=== PATIENT | female | born 1955 | race Caucasian/White ===

== ENCOUNTER 2020-06-27 11:53 | Outpatient (REF) | payer MEDICARE, SELFPAY ==
--- NOTE | 2020-06-27 11:59 | MM_ITS ---
EXAMINATION: BONE DENSITOMETRY CLINICAL INDICATION: Osteopenia. COMPARISON: Baseline BD dated 10/10/2010. TECHNIQUE: Using a [employer] DXA System (software version: 13.1) manufactured by [employer], dual-energy x-ray absorptiometry was performed of the lumbar spine and left hip. The images are of good technical quality. Summary results are attached. FINDINGS: AP SPINE L1-L4: Current: BMD 1.175 g/cm2, Z-score 1.0, T-score 0.0, normal, 1.8% increase from baseline (<5% change is not significant). Baseline: BMD 1.154 g/cm2. LEFT FEMUR, NECK: Current: BMD 0.813 g/cm2, Z-score -0.5, T-score -1.6, osteopenia. Baseline: BMD 0.923 g/cm2. LEFT FEMUR, TOTAL: Current: BMD 0.876 g/cm2, Z-score -0.2, T-score -1.0, normal, 9.9% decrease from baseline (<5% change is not significant). Baseline: BMD 0.972 g/cm2. IDENTIFIED RISK FACTORS: Menopause, right oophorectomy. HISTORY OF FRACTURE: None listed. MEDICATIONS: Calcium supplements or multivitamin, vitamin D. MM/XR DEXA axial skeleton IMPRESSION: 1. DIAGNOSIS: Osteopenia based on the lowest T-score value of -1.6 in the femoral neck applying World Health Organization criteria. 2. 10-YEAR FRACTURE RISK PREDICTION, FRAX: Major osteoporotic fracture (clinical spine, forearm, hip or shoulder) 9.5%. Hip fracture 1.2%. 3. Treatment Recommendations: NOF guidelines recommend consideration for treatment in postmenopausal women and men age 50 and older presenting with the following: -A hip or vertebral (clinical or morphometric) fracture. -T-score less than or equal to -2.5 at the femoral neck or spine after appropriate evaluation to exclude secondary causes. -Low bone mass at the hip or spine and a 10-year fracture probability by FRAX of greater than or equal to 3% for hip fracture or greater than or equal to 20% for major osteoporotic fracture based on the [place] adapted WHO algorithm. 4. Other Recommendations: All treatment decisions require clinical judgment and consideration of individual patient factors, including patient preferences, comorbidities, previous drug use, risk factors not captured in the FRAX model (e.g. frailty, falls, vitamin D deficiency, increased bone turnover, interval significant decline in bone density) and possible under or overestimation of fracture risk by FRAX. Additional medical evaluation for secondary cause of low bone mineral density may be appropriate. FUTURE SCAN RECOMMENDATION: People with diagnosed cases of osteoporosis or at high risk for fracture should have regular bone mineral density tests. For patients eligible for Medicare, routine testing is allowed once every 2 years. The testing frequency can be increased to one year for patients who have rapidly progressing disease, those who are receiving or discontinuing medical therapy to restore bone mass, or have additional risk factors.
--- NOTE | 2020-06-27 11:59 | MM_ITS ---
EXAMINATION: MM SCREENING DIGITAL BREAST TOMOSYNTHESIS, BILATERAL CLINICAL INFORMATION: Screening. Asymptomatic. Family history postmenopausal breast cancer, aunt. The lifetime risk of breast cancer based on the Tyrer-Cuzick Model is 12%. COMPARISON: Outside synthesized 2-D images 09/03/2017, 08/29/2016, 06/14/2015 ([facility], [facility]). Digital mammography 05/13/2010. TECHNIQUE: Digital breast tomosynthesis is performed in both the craniocaudal and mediolateral oblique views along with computer-aided detection (CAD). Synthesized 2D images are generated from the tomosynthesis. FINDINGS: There are scattered areas of fibroglandular density (ACR BI-RADS breast composition Category b). There are no significant masses, abnormal calcifications, or other abnormalities. Parenchymal pattern is similar to prior studies. No significant changes. MM/MM tomosynthesis screening BI IMPRESSION: No mammographic evidence of malignancy. ASSESSMENT: BI-RADS 1: Negative RECOMMENDATION: Routine annual mammography screening. This patient's information was entered into a reminder system with a target due date for their next mammogram.
== END 2020-06-27 11:54 | disposition home or self-care (01) ==
LOC: HO.MAMMO 11:53
PROVIDERS: PCP Internal Medicine; Visit Provider Internal Medicine
DX: M85.89 Other specified disorders of bone density and structure, multiple sites (principal); Z12.31 Encounter for screening mammogram for malignant neoplasm of breast
CPT/HCPCS: 77063; 77067; 77080

== ENCOUNTER 2021-01-17 10:36 | Outpatient (REF) | payer MEDICARE, SELFPAY ==
[2021-01-17 10:39] LABS: MANUAL DIFF FLAG NO
[2021-01-17 10:46] LABS: Basophils Percent Auto 0.6 % (0-2); Eosinophils Absolute Auto 0.1 X10*3/uL (0.0-0.4); Eosinophils Percent Auto 1.8 % (0-4); Hematocrit 42.3 % (37-47); Hemoglobin 13.8 g/dl (12.0-16.0); Imm Gran Abs Auto 0.02 X10*3/uL (0.00-0.03); Imm Gran Pct Auto 0.4 % (0.0-0.4); Lymphocytes Absolute Auto 2.2 X10*3/uL (1.2-4.9); Lymphocytes Percent Auto 42.7 % (20-40); Mean Corpuscular HGB Conc 32.6 g/dl (31.0-35.0); Mean Corpuscular Hemoglobin 28.7 pg (27.0-33.0); Mean Corpuscular Volume 87.9 fL (80-98); Monocytes Absolute Auto 0.6 X10*3/uL (0.1-1.2); Monocytes Percent Auto 12.1 % (2-11); Neutrophils Absolute Auto 2.2 X10*3/uL (2.0-8.3); Neutrophils Percent Auto 42.4 % (45-73); Platelet Count 225 X10*3/uL (160-400); Red Blood Count 4.81 X10*6/uL (4.20-5.50); Red Cell Distribution Width 12.9 % (11.0-16.0); White Blood Count 5.1 X10*3/uL (4.8-10.8)
[2021-01-17 11:10] LABS: Glucose Urine UA NEG (NEG); Leukocyte Esterase Urine TRACE (NEG); Nitrite Urine NEG (NEG); Specific Gravity - Urine 1.025 (1.005-1.025); Urine Blood NEG (NEG); Urine Ketones NEG (NEG); Urine Protein NEG (NEG-TRACE)
[2021-01-17 11:11] LABS: Appearance Urine CLEAR; Color Urine YELLOW
[2021-01-17 11:30] LABS: Alanine Aminotransferase 18 U/L (0-31); Albumin Level 3.9 g/dL (3.5-5.0); Alkaline Phosphatase 72 U/L (39-117); Anion Gap 13 (12-20); Aspartate Amino Transferase 19 U/L (5-31); Bilirubin Total 0.6 mg/dL (0.0-1.0); Blood Urea Nitrogen 15 mg/dL (9-16); Calcium 9.4 mg/dL (8.4-10.2); Carbon Dioxide 25 mmol/L (22-29); Chloride 108 mmol/L (96-108); Cholesterol 209 mg/dL; Estimated Glomerular Filt Rate > 60; Glucose Fasting 101 mg/dL (60-99); HDL Cholesterol 48 mg/dL; LDL Cholesterol Calculated 140 mg/dl; Potassium 4.4 mmol/L (3.3-5.1); Sodium 142 mmol/L (135-145); Total Protein 6.7 g/dL (6.5-8.0); Triglycerides 107 mg/dL
[2021-01-17 11:31] LABS: Vitamin D 25-OH Total 36.2 ng/mL (>30)
[2021-01-17 11:43] LABS: Bacteria Urine 1+ /LPF; Mucus Urine TRACE /LPF; Squamous Epithelial Cell Urine 2+ /LPF
== END 2021-01-17 10:37 | disposition home or self-care (01) ==
LOC: HO.LNP 10:36
PROVIDERS: Visit Provider Internal Medicine
DX: I10 Essential (primary) hypertension (principal); E78.00 Pure hypercholesterolemia, unspecified; D72.820 Lymphocytosis (symptomatic); M85.80 Other specified disorders of bone density and structure, unspecified site
CPT/HCPCS: 80053; 80061; 81001; 81003; 82306; 85025

== ENCOUNTER 2021-10-05 08:32 | Outpatient (REF) | payer MEDICARE, SELFPAY ==
--- NOTE | ~2021-10-05 | MM_ITS ---
EXAMINATION: MM SCREENING DIGITAL BREAST TOMOSYNTHESIS, BILATERAL CLINICAL INFORMATION: Screening. Asymptomatic. The lifetime risk of breast cancer based on the Tyrer-Cuzick Model is 8%. COMPARISON: Mammography: June 27, 2020 and studies dating back to June 14, 2015 TECHNIQUE: Digital breast tomosynthesis is performed in both the craniocaudal and mediolateral oblique views along with computer-aided detection (CAD). Synthesized 2D images are generated from the tomosynthesis. FINDINGS: There are scattered areas of fibroglandular density (ACR BI-RADS breast composition Category b). There are no significant masses, abnormal calcifications, or other abnormalities. MM/MM tomosynthesis screening BI IMPRESSION: There are no significant changes from prior study. ASSESSMENT: BI-RADS 1: Negative RECOMMENDATION: Routine annual mammography screening. This patient's information was entered into a reminder system with a target due date for their next mammogram.
== END 2021-10-05 08:33 | disposition home or self-care (01) ==
LOC: HO.MAMMO 08:32
PROVIDERS: PCP Internal Medicine; Visit Provider Internal Medicine
DX: Z12.31 Encounter for screening mammogram for malignant neoplasm of breast (principal)
CPT/HCPCS: 77063; 77067

== ENCOUNTER 2022-01-16 10:26 | Outpatient (REF) | payer MEDICARE, SELFPAY ==
[2022-01-16 10:30] LABS: MANUAL DIFF FLAG NO
[2022-01-16 11:31] LABS: Appearance Urine CLEAR; Color Urine YELLOW; Glucose Urine UA NEG (NEG); Leukocyte Esterase Urine NEG (NEG); Nitrite Urine NEG (NEG); PH 5.5 (5.0-8.0); Specific Gravity - Urine >= 1.030 (1.005-1.025); Urine Blood NEG (NEG); Urine Ketones NEG (NEG); Urine Protein TRACE MG/DL (NEG-TRACE)
[2022-01-16 11:51] LABS: Basophils Percent Auto 0.4 % (0-2); Eosinophils Absolute Auto 0.1 X10*3/uL (0.0-0.4); Hematocrit 43.4 % (37.0-47.0); Hemoglobin 13.9 g/dl (12.0-16.0); Imm Gran Abs Auto 0.02 X10*3/uL (0.00-0.03); Imm Gran Pct Auto 0.3 % (0.0-0.4); Lymphocytes Absolute Auto 2.7 X10*3/uL (1.2-4.9); Lymphocytes Percent Auto 38.2 % (20-40); Mean Corpuscular Hemoglobin 28.3 pg (27.0-33.0); Mean Corpuscular Volume 88.2 fL (80.0-98.0); Mean Platelet Volume 11.4 fL (9.4-12.3); Monocytes Absolute Auto 0.9 X10*3/uL (0.1-1.2); Monocytes Percent Auto 12.2 % (2-11); Neutrophils Absolute Auto 3.4 x10*3/uL (2.0-8.3); Neutrophils Percent Auto 46.9 % (45-73); Platelet Count 247 X10*3/uL (160-400); Red Blood Count 4.92 X10*6/uL (4.20-5.50); Red Cell Distribution Width 13.4 % (11.0-16.0); White Blood Count 7.1 X10*3/uL (4.8-10.8)
[2022-01-16 12:34] LABS: Alanine Aminotransferase 18 U/L (0-31); Albumin Level 3.9 g/dL (3.5-5.0); Alkaline Phosphatase 73 U/L (39-117); Anion Gap 12 (12-20); Aspartate Amino Transferase 17 U/L (5-31); Bilirubin Total 0.5 mg/dL (0.0-1.0); Blood Urea Nitrogen 21 mg/dL (9-16); Carbon Dioxide 27 mmol/L (22-29); Chloride 105 mmol/L (96-108); Cholesterol 218 mg/dL; Estimated Glomerular Filt Rate > 60; Glucose Fasting 102 mg/dL (60-99); HDL Cholesterol 49 mg/dL; LDL Cholesterol Calculated 145 mg/dl; Potassium 4.1 mmol/L (3.3-5.1); Sodium 140 mmol/L (135-145); Total Protein 6.7 g/dL (6.5-8.0); Triglycerides 121 mg/dL
[2022-01-16 12:35] LABS: RBC Urine 0 /HPF (0); WBC Urine 0-2 /HPF (0-4)
[2022-01-16 12:36] LABS: Calcium Oxalate Crystals Urine TRACE /LPF; Squamous Epithelial Cell Urine 2+ /LPF
== END 2022-01-16 10:27 | disposition home or self-care (01) ==
LOC: HO.LNP 10:26
PROVIDERS: PCP Internal Medicine; Visit Provider Internal Medicine
DX: I10 Essential (primary) hypertension (principal); D72.820 Lymphocytosis (symptomatic); E78.00 Pure hypercholesterolemia, unspecified
CPT/HCPCS: 80053; 80061; 81001; 85025

== ENCOUNTER 2022-01-24 11:59 | Outpatient (REF) | payer MEDICARE, BC, SELFPAY ==
--- NOTE | ~2022-01-24 | XR_ITS ---
EXAMINATION: CHEST WITH RIBS BILATERAL. BILATERAL KNEE, LEFT ANKLE AND LEFT HAND AND WRIST. CLINICAL INFORMATION: Fall. Pain. COMPARISON: None TECHNIQUE: Chest and bilateral RIBS 3 views. Bilateral knee 3 views each. Left ankle 3 views. Left hand 4 views. FINDINGS: Chest: Both lungs are fairly well-expanded and clear of acute process. Heart size and pulmonary vascularity is normal. There is mild spondylosis dorsal spine. Bilateral RIBS: One view at each of bilateral ribs reveals no visible fracture or bony abnormality. No soft tissue abnormality. Right knee: There is mild loss of patellofemoral compartment joint space is anterior superior patellar enthesophyte. There is minimal suprapatellar joint effusion. The medial and lateral compartment is maintained normal. There is a small loose body seen anterior to the intercondylar eminence. Left knee: There is mild reduction in patellofemoral compartment joint space. The lateral and the medial matter compartment joint space is maintained normal. There is mild spurring in the lateral compartment and periarticular joint effusion. There is a small loose body in the suprapatellar compartment. . Left ankle: There is a small calcaneal heel enthesophyte. No visible acute fracture or dislocation seen. The soft tissues Left hand: There is no visible acute fracture, dislocation or subluxation seen. There is no joint effusion. The soft tissues are normal. XR/XR hand wrist LT IMPRESSION: No acute fracture or dislocation involving the left hand/wrist, left ankle or the left knee. There is calcaneal heel enthesophyte. Mild degenerative changes involving the knee joints are noted without any joint effusion. There is likely a small loose body in the suprapatellar compartment. Mild DJD right knee. Unremarkable chest and bilateral rib exam.
--- NOTE | ~2022-01-24 | XR_ITS ---
EXAMINATION: CHEST WITH RIBS BILATERAL. BILATERAL KNEE, LEFT ANKLE AND LEFT HAND AND WRIST. CLINICAL INFORMATION: Fall. Pain. COMPARISON: None TECHNIQUE: Chest and bilateral RIBS 3 views. Bilateral knee 3 views each. Left ankle 3 views. Left hand 4 views. FINDINGS: Chest: Both lungs are fairly well-expanded and clear of acute process. Heart size and pulmonary vascularity is normal. There is mild spondylosis dorsal spine. Bilateral RIBS: One view at each of bilateral ribs reveals no visible fracture or bony abnormality. No soft tissue abnormality. Right knee: There is mild loss of patellofemoral compartment joint space is anterior superior patellar enthesophyte. There is minimal suprapatellar joint effusion. The medial and lateral compartment is maintained normal. There is a small loose body seen anterior to the intercondylar eminence. Left knee: There is mild reduction in patellofemoral compartment joint space. The lateral and the medial matter compartment joint space is maintained normal. There is mild spurring in the lateral compartment and periarticular joint effusion. There is a small loose body in the suprapatellar compartment. . Left ankle: There is a small calcaneal heel enthesophyte. No visible acute fracture or dislocation seen. The soft tissues Left hand: There is no visible acute fracture, dislocation or subluxation seen. There is no joint effusion. The soft tissues are normal. XR/XR ribs BI 3V IMPRESSION: No acute fracture or dislocation involving the left hand/wrist, left ankle or the left knee. There is calcaneal heel enthesophyte. Mild degenerative changes involving the knee joints are noted without any joint effusion. There is likely a small loose body in the suprapatellar compartment. Mild DJD right knee. Unremarkable chest and bilateral rib exam.
--- NOTE | ~2022-01-24 | XR_ITS ---
EXAMINATION: CHEST WITH RIBS BILATERAL. BILATERAL KNEE, LEFT ANKLE AND LEFT HAND AND WRIST. CLINICAL INFORMATION: Fall. Pain. COMPARISON: None TECHNIQUE: Chest and bilateral RIBS 3 views. Bilateral knee 3 views each. Left ankle 3 views. Left hand 4 views. FINDINGS: Chest: Both lungs are fairly well-expanded and clear of acute process. Heart size and pulmonary vascularity is normal. There is mild spondylosis dorsal spine. Bilateral RIBS: One view at each of bilateral ribs reveals no visible fracture or bony abnormality. No soft tissue abnormality. Right knee: There is mild loss of patellofemoral compartment joint space is anterior superior patellar enthesophyte. There is minimal suprapatellar joint effusion. The medial and lateral compartment is maintained normal. There is a small loose body seen anterior to the intercondylar eminence. Left knee: There is mild reduction in patellofemoral compartment joint space. The lateral and the medial matter compartment joint space is maintained normal. There is mild spurring in the lateral compartment and periarticular joint effusion. There is a small loose body in the suprapatellar compartment. . Left ankle: There is a small calcaneal heel enthesophyte. No visible acute fracture or dislocation seen. The soft tissues Left hand: There is no visible acute fracture, dislocation or subluxation seen. There is no joint effusion. The soft tissues are normal. XR/XR ankle LT 2V IMPRESSION: No acute fracture or dislocation involving the left hand/wrist, left ankle or the left knee. There is calcaneal heel enthesophyte. Mild degenerative changes involving the knee joints are noted without any joint effusion. There is likely a small loose body in the suprapatellar compartment. Mild DJD right knee. Unremarkable chest and bilateral rib exam.
== END 2022-01-24 12:00 | disposition home or self-care (01) ==
LOC: HO.HMGCX 11:59
PROVIDERS: PCP Internal Medicine; Visit Provider Physician Assistant
DX: M25.561 Pain in right knee (principal); M25.562 Pain in left knee; M25.572 Pain in left ankle and joints of left foot; M25.532 Pain in left wrist; M79.642 Pain in left hand; R07.81 Pleurodynia; Z91.81 History of falling
CPT/HCPCS: 71110; 73110; 73130; 73562; 73600

== ENCOUNTER 2022-06-29 14:52 | Outpatient (REF) | payer MEDICARE, BC, SELFPAY ==
--- NOTE | ~2022-06-29 | MM_ITS ---
EXAMINATION: BONE DENSITOMETRY CLINICAL INDICATION: Osteopenia. COMPARISON: Previous BD dated 06/27/2012 and baseline BD dated 10/10/2010. TECHNIQUE: Using a [employer] DXA System (software version: 13.1) manufactured by [employer], dual-energy x-ray absorptiometry was performed of the lumbar spine and left hip. The images are of good technical quality. Summary results are attached. FINDINGS: AP SPINE L1-L2 (excluding L3 and L4): The data of L1-L4 has been changed to exclude the L3 and L4 vertebral bodies, because degenerative changes at these levels may cause overestimation of lumbar spine density. Current: BMD 0.988 g/cm2, Z-score -0.3, T-score -1.5, osteopenia, 6.2% decrease from previous, 8.9% decrease from baseline (<5% change is not significant). Prior: BMD 1.053 g/cm2. Baseline: BMD 1.084 g/cm2. LEFT FEMUR, NECK: Current: BMD 0.659 g/cm2, Z-score -1.4, T-score -2.7, osteoporosis. Prior: BMD 0.813 g/cm2. Baseline: BMD 0.923 g/cm2. LEFT FEMUR, TOTAL: Current: BMD 0.727 g/cm2, Z-score -1.2, T-score -2.2, osteopenia, 17.0% decrease from previous, 25.2% decrease from baseline (<5% change is not significant). Prior: BMD 0.876 g/cm2. Baseline: BMD 0.972 g/cm2. IDENTIFIED RISK FACTORS: Menopause, left oophorectomy, recurrent falls. HISTORY OF FRACTURE: None listed. MEDICATIONS: Vitamin D. MM/XR DEXA axial skeleton IMPRESSION: 1. DIAGNOSIS: Osteoporosis based on the lowest T-score value of -2.7 in the femoral neck applying World Health Organization criteria. 2. 10-YEAR FRACTURE RISK PREDICTION, FRAX: According to the guidelines, FRAX calculation should only be performed on patients in the osteopenia bone density category. Therefore, FRAX was not performed on this patient. 3. Treatment Recommendations: NOF guidelines recommend consideration for treatment in postmenopausal women and men age 50 and older presenting with the following: -A hip or vertebral (clinical or morphometric) fracture. -T-score less than or equal to -2.5 at the femoral neck or spine after appropriate evaluation to exclude secondary causes. -Low bone mass at the hip or spine and a 10-year fracture probability by FRAX of greater than or equal to 3% for hip fracture or greater than or equal to 20% for major osteoporotic fracture based on the [place] adapted WHO algorithm. 4. Other Recommendations: All treatment decisions require clinical judgment and consideration of individual patient factors, including patient preferences, comorbidities, previous drug use, risk factors not captured in the FRAX model (e.g. frailty, falls, vitamin D deficiency, increased bone turnover, interval significant decline in bone density) and possible under or overestimation of fracture risk by FRAX. Additional medical evaluation for secondary cause of low bone mineral density may be appropriate. FUTURE SCAN RECOMMENDATION: People with diagnosed cases of osteoporosis or at high risk for fracture should have regular bone mineral density tests. For patients eligible for Medicare, routine testing is allowed once every 2 years. The testing frequency can be increased to one year for patients who have rapidly progressing disease, those who are receiving or discontinuing medical therapy to restore bone mass, or have additional risk factors.
== END 2022-06-29 14:53 | disposition home or self-care (01) ==
LOC: HO.MAMMO 14:52
PROVIDERS: PCP Internal Medicine; Visit Provider Internal Medicine
DX: Z13.820 Encounter for screening for osteoporosis (principal); Z78.0 Asymptomatic menopausal state; M85.88 Other specified disorders of bone density and structure, other site
CPT/HCPCS: 77080

== ENCOUNTER 2022-08-10 13:28 | Outpatient (REF) | payer MEDICARE, BC, SELFPAY ==
[2022-08-10 15:58] LABS: Phosphorus 3.4 mg/dL (2.7-4.5)
[2022-08-10 16:16] LABS: Free T4 (Free Thyroxine) 1.13 ng/dL (0.71-1.85); Thyroid Stimulating Hormone 1.38 uIU/mL (0.32-4.0)
[2022-08-13 14:48] LABS: Prot Elec - Albumin 3.9 g/dL (3.8-4.8); Prot Elec - Alpha1 0.3 g/dL (0.2-0.3); Prot Elec - Alpha2 0.7 g/dL (0.5-0.9); Prot Elec - Beta 1 0.4 g/dL (0.4-0.6); Prot Elec - Beta 2 0.3 g/dL (0.2-0.5); Prot Elec - Gamma 1.1 g/dL (0.8-1.7); Prot Elec - Total Protein 6.7 g/dL (6.1-8.1)
== END 2022-08-10 13:29 | disposition home or self-care (01) ==
LOC: HO.LAB 13:28
PROVIDERS: PCP Internal Medicine; Referring Provider Internal Medicine; Visit Provider Internal Medicine Endocrinology, Diabetes & Metabolism
DX: M81.0 Age-related osteoporosis without current pathological fracture (principal); Z78.0 Asymptomatic menopausal state; Z79.899 Other long term (current) drug therapy
CPT/HCPCS: 84100; 84165; 84439; 84443; 86335; 99202

== ENCOUNTER 2022-11-16 10:49 | Outpatient (REF) | payer MEDICARE, BC, SELFPAY ==
--- NOTE | ~2022-11-16 | MM_ITS ---
EXAMINATION: MM SCREENING DIGITAL BREAST TOMOSYNTHESIS, BILATERAL CLINICAL INFORMATION: Screening. Asymptomatic. The lifetime risk of breast cancer based on the Tyrer-Cuzick Model is 9%. COMPARISON: Mammography: 12/05/2021, 06/27/2020; outside mammography 09/03/2017, 08/29/2016 ([facility], [place]). TECHNIQUE: Digital breast tomosynthesis is performed in both the craniocaudal and mediolateral oblique views along with computer-aided detection (CAD). Synthesized 2D images are generated from the tomosynthesis. FINDINGS: There are scattered areas of fibroglandular density (ACR BI-RADS breast composition Category b). There are no significant masses, abnormal calcifications, or other abnormalities. Parenchymal pattern is similar to prior studies. There is no developing density or architectural abnormality. The axilla and skin contours are unremarkable. No significant changes. MM/MM tomosynthesis screening BI IMPRESSION: No mammographic evidence of malignancy. ASSESSMENT: BI-RADS 1: Negative RECOMMENDATION: Routine annual mammography screening. This patient's information was entered into a reminder system with a target due date for their next mammogram.
== END 2022-11-16 10:50 | disposition home or self-care (01) ==
LOC: HO.MAMMO 10:49
PROVIDERS: PCP Internal Medicine; Visit Provider Internal Medicine
DX: Z12.31 Encounter for screening mammogram for malignant neoplasm of breast (principal)
CPT/HCPCS: 77063; 77067

== ENCOUNTER 2023-01-24 09:31 | Outpatient (REF) | payer MEDICARE, BC, SELFPAY ==
[2023-01-24 10:43] LABS: Creatinine, mg/dL 85.01
[2023-01-24 12:58] LABS: Creatinine, 24Hr Urine 0.9 G/Day (1.0-2.0); Total Volume 24 Hour Urine 1050 mL
[2023-01-26 21:24] LABS: Calcium, 24 Hr Urine 319 mg/24 h; Calcium/Creatinine Ratio 345 mg/g creat (30-275); Creatinine 24Hr Urine 0.92 g/24 h (0.50-2.15)
== END 2023-01-24 09:32 | disposition home or self-care (01) ==
LOC: HO.LNP 09:31
PROVIDERS: Visit Provider Internal Medicine Endocrinology, Diabetes & Metabolism
DX: M81.0 Age-related osteoporosis without current pathological fracture (principal)
CPT/HCPCS: 82340; 82570

== ENCOUNTER 2023-01-28 10:55 | Outpatient (AMB) | payer MEDICARE, BC, SELFPAY ==
--- NOTE | 2023-01-28 10:56 | A.OFFVIS_ITS ---
Intake Vital Signs 01/28/23 10:57 Height 5 ft 8 in Weight 185 lb 3.013 oz BMI 28.2 BP 118/70 Blood Pressure Location Lt brachial Position Sitting Pulse 66 Pulse Source Pulse Oximeter Pulse Oximetry (%) 97 Oxygen Delivery Method Room Air Intake Visit Reasons: f/u osteoporosis Intake Note: Patient present today for Osteoporosis follow up visit. Allergies aspirin [ASA] Allergy (Unknown, Unverified 01/28/23 10:59) HIVES codeine [CODEINE] Allergy (Unknown, Unverified 01/28/23 10:59) AGITATION Iodinated Contrast Media [IV CONTRAST] Allergy (Unknown, Unverified 01/28/23 10:59) ANAPHYLAXIS Medication List - Last Reconciled 01/28/23 by Jordy Hyatt MD cyclobenzaprine 5 mg PO BEDTIME PRN lisinopril-hydrochlorothiazide 10-12.5 mg 1 tab PO DAILY paroxetine HCl 20 mg PO DAILY propranolol ER 60 mg PO DAILY HPI HPI Comments History of Present Illness Details 67 YO F with PMHx [] is seen in consultation at the request of PCP for Osteoporosis. First diagnosed in just dx . Not Received treatment in the past . No history of pathologic fracture or ONJ. Has severla servings of dietary calcium per day in the form of broccoli, cheese, . Not Takes Calcium supplement divided doses. Takes ? IU of Vitamin D daily. Denies ever using PPI, anticoagulant, antiepileptic or glucocorticoid medication. Does not weight bearing exercise Fracture history: N Height loss: N [employer] history: menopause age 52 . Had endometrosis Denies history of Kidney stones: Denies family history of Osteoporosis or hip fracture. UTD on dental cleanings and sees dentist every 6 months. No planned upcoming dental work or extractions. DXA dated 06/29/22:FINDINGS: AP SPINE L1-L2 (excluding L3 and L4): The data of L1-L4 has been changed to exclude the L3 and L4 vertebral bodies, because degenerative changes at these levels may cause overestimation of lumbar spine density. Current: BMD 0.988 g/cm2, Z-score -0.3, T-score -1.5, osteopenia, 6.2% decrease from previous, 8.9% decrease from baseline (<5% change is not significant). Prior: BMD 1.053 g/cm2. Baseline: BMD 1.084 g/cm2. LEFT FEMUR, NECK: Current: BMD 0.659 g/cm2, Z-score -1.4, T-score -2.7, osteoporosis. Prior: BMD 0.813 g/cm2. Baseline: BMD 0.923 g/cm2. LEFT FEMUR, TOTAL: Current: BMD 0.727 g/cm2, Z-score -1.2, T-score -2.2, osteopenia, 17.0% decrease from previous, 25.2% decrease from baseline (<5% change is not significant). Prior: BMD 0.876 g/cm2. Baseline: BMD 0.972 g/cm2. IDENTIFIED RISK FACTORS: Menopause, left oophorectomy, recurrent falls. HISTORY OF FRACTURE: None listed. MEDICATIONS: Vitamin D. MM/XR DEXA axial skeleton IMPRESSION: 1. DIAGNOSIS: Osteoporosis based on the lowest T-score value of -2.7 in the femoral neck applying World Health Organization criteria.? Labs: Secondary workup was negative except for mild hypercalcuria [facility] Medical History (Updated 08/10/22 @ 13:50 by Jordy Hyatt MD) Osteoporosis Surgical History (Updated 08/10/22 @ 13:32 by ELIZABETH Melton) Hx of colonoscopy Family History (Updated 08/10/22 @ 13:42 by ELIZABETH Melton) Mother Heart disease Hypertension Father FH: prostate cancer Social History (Updated 08/10/22 @ 13:43 by ELIZABETH Melton) Household Members: Spouse Household Members Other:: , dog Alcohol intake: current Alcohol type: other Patient Tobacco Use Status: Never used Tobacco Second Hand Smoke Exposure: No Assessment & Plan Assessment & Plan (1) Osteoporosis: Code(s): M81.0 - Age-related osteoporosis without current pathological fracture Plan: This 67-year-old white female with a history of osteoporosis. Secondary causes were negative except for mild hypercalciuria Plan is measures the patient's primary care provider about increasing the hydrochlorothiazide to 25 mg. Primary care can follow the patient's blood pressure as well as electrolytes. Will also tell patient to hold calcium supplementation. Once this is done, a repeat 24 hour urine for calcium, sodium and creatinine could be performed in about 2-3 months time. Orders: Orders Calcium, 24 Hr Ur 12 Weeks M81.0 - Age-related osteoporosis without current pathological fracture Creatinine, 24 Hr Group 12 Weeks M81.0 - Age-related osteoporosis without current pathological fracture Sodium, 24Hr Urine Group 12 Weeks M81.0 - Age-related osteoporosis without current pathological fracture Coding Level of Care Code Est Pt Level 3 (26692) Diagnoses Osteoporosis M81.0
[2023-01-28 10:57] VITALS: BP 118/70; PULSE 66; O2SAT 97; BMI 28.2
== END 2023-01-28 11:16 | disposition home or self-care (01) ==
PROVIDERS: PCP Internal Medicine; Visit Provider Internal Medicine Endocrinology, Diabetes & Metabolism
DX: M81.0 Age-related osteoporosis without current pathological fracture (principal)
CPT/HCPCS: 99213

== ENCOUNTER → 2023-01-28 10:55 | Outpatient (BNVA) | payer MEDICARE, BC, SELFPAY | PROVIDERS: Visit Provider Internal Medicine Endocrinology, Diabetes & Metabolism | DX: M81.0 Age-related osteoporosis without current pathological fracture (principal); R29.6 Repeated falls; Z78.0 Asymptomatic menopausal state; Z90.721 Acquired absence of ovaries, unilateral | CPT/HCPCS: 99212 ==

== ENCOUNTER 2023-02-19 12:20 | Outpatient (REF) | payer MEDICARE, BC, SELFPAY ==
[2023-02-19 12:32] LABS: Appearance Urine Clear; Color Urine Yellow; Glucose Urine UA Negative (Negative); Leukocyte Esterase Urine Moderate (2+) (Negative); Nitrite Urine Negative (Negative); PH 6.5 (5.0-9.0); Specific Gravity - Urine 1.015 (1.005-1.025); UMIC TRIGGER UA YES; Urine Blood Negative (Negative); Urine Ketones Negative (Negative); Urine Protein Negative (Neg-Trace)
[2023-02-19 12:49] LABS: Bacteria Urine None Seen (None Seen); Hyaline Casts Urine 0-2 /LPF (0-2); RBC Urine 0-2 /HPF (0-2); Squamous Epithelial Cell Urine 0-2 /HPF (0-2); WBC Urine 0-5 /HPF (0-5)
== END 2023-02-19 12:21 | disposition home or self-care (01) ==
LOC: HO.LNP 12:20
PROVIDERS: Visit Provider Internal Medicine
DX: E83.50 Unspecified disorder of calcium metabolism (principal)
CPT/HCPCS: 81001

== ENCOUNTER 2023-06-03 13:36 | Outpatient (REF) | payer MEDICARE, BC, SELFPAY ==
[2023-06-03 14:46] LABS: Creatinine, mg/dL 70.39
[2023-06-03 14:47] LABS: Creatinine, mg/dL 69.31
[2023-06-03 14:52] LABS: Creatinine, 24Hr Urine 0.8 G/Day (1.0-2.0); Creatinine, 24Hr Urine 0.9 G/Day (1.0-2.0); Sodium 24 Hr Urine 134.8 mmol/Day (40-220); Total Volume 24 Hour Urine 1225 mL
[2023-06-04 17:33] LABS: Calcium, 24 Hr Urine 172 mg/24 h; Calcium/Creatinine Ratio 192 mg/g creat (30-275); Creatinine 24Hr Urine 0.89 g/24 h (0.50-2.15)
== END 2023-06-03 13:37 | disposition home or self-care (01) ==
LOC: HO.LNP 13:36
PROVIDERS: Visit Provider Internal Medicine Endocrinology, Diabetes & Metabolism
DX: M81.0 Age-related osteoporosis without current pathological fracture (principal)
CPT/HCPCS: 82340; 82570; 84300

== ENCOUNTER 2023-10-21 10:32 | Outpatient (AMB) | payer MEDICARE, BC, SELFPAY ==
[2023-10-21 10:36] VITALS: BP 104/66; PULSE 70; BMI 28.7
--- NOTE | 2023-10-21 10:36 | A.OFFVIS_ITS ---
Intake Vital Signs 10/21/23 10:36 Height 5 ft 8 in Weight 188 lb 14.978 oz BMI 28.7 BP 104/66 Blood Pressure Location Lt brachial Position Sitting Pulse 70 Pulse Source Pulse Oximeter Intake Visit Reasons: Osteoporosis Intake Note: Patient presents today for Osteoporosis follow up visit. 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 Accompanied by: Self / Same As Patient Allergies aspirin [ASA] Allergy (Unknown, Unverified 10/21/23 10:46) HIVES codeine [CODEINE] Allergy (Unknown, Unverified 10/21/23 10:46) AGITATION Iodinated Contrast Media [IV CONTRAST] Allergy (Unknown, Unverified 10/21/23 10:46) ANAPHYLAXIS Medication List - Last Reconciled 10/21/23 by Jordy Hyatt MD cyclobenzaprine 5 mg PO BEDTIME PRN lisinopril-hydrochlorothiazide 10-12.5 mg 1 tab PO DAILY paroxetine HCl 20 mg PO DAILY propranolol ER 60 mg PO DAILY HPI HPI Comments History of Present Illness Details 68 YO F with PMHx [] is seen in consult ation at the request of PCP for Osteoporosis. First diagnosed in just dx . Not Received treatment in the past . No history of pathologic fracture or ONJ. Has severla servings of dietary calcium per day in the form of broccoli, cheese, . Not Takes Calcium supplement divided doses. Takes ? IU of Vitamin D daily. Denies ever using PPI, anticoagulant, antiepileptic or glucocorticoid medication. 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 Had endometrosis Denies history of Kidney stones: Denies family history of Osteoporosis or hip fracture. UTD on dental cleanings and sees dentist every 6 months. No planned upcoming dental work or extractions. DXA dated 06/29/22:FINDINGS: AP SPINE L1-L2 (excluding L3 and L4): The data of L1-L4 has been changed to exclude the L3 and L4 vertebral bodies, because degenerative changes at these levels may cause overestimation of lumbar spine density. Current: BMD 0.988 g/cm2, Z-score -0.3, T-score -1.5, osteopenia, 6.2% decrease from previous, 8.9% decrease from baseline (<5% change is not significant). Prior: BMD 1.053 g/cm2. Baseline: BMD 1.084 g/cm2. LEFT FEMUR, NECK: Current: BMD 0.659 g/cm2, Z-score -1.4, T-score -2.7, osteoporosis. Prior: BMD 0.813 g/cm2. Baseline: BMD 0.923 g/cm2. LEFT FEMUR, TOTAL: Current: BMD 0.727 g/cm2, Z-score -1.2, T-score -2.2, osteopenia, 17.0% decrease from previous, 25.2% decrease from baseline (<5% change is not significant). Prior: BMD 0.876 g/cm2. Baseline: BMD 0.972 g/cm2. IDENTIFIED RISK FACTORS: Menopause, left oophorectomy, recurrent falls. HISTORY OF FRACTURE: None listed. MEDICATIONS: Vitamin D. MM/XR DEXA axial skeleton IMPRESSION: 1. DIAGNOSIS: Osteoporosis based on the lowest T-score value of -2.7 in the femoral neck applying World Health Organization criteria.? Labs: Secondary workup was negative except for mild hypercalcuria . Patient was placed on HCTZ with normalization of urinary calcium [facility] Medical History (Updated 08/10/22 @ 13:50 by Jordy Hyatt MD) Osteoporosis Surgical History Hx of colonoscopy Family History Mother Heart disease Hypertension Father FH: prostate cancer Social History Household Members: Spouse Household Members Other:: , dog Alcohol intake: current Alcohol type: other Patient Tobacco Use Status: Never used Tobacco Second Hand Smoke Exposure: No Physical Exam Vital Signs: Last Vital Signs Pulse 70 10/21/23 10:36 BP 104/66 10/21/23 10:36 BMI result Body Mass Index 28.7 Assessment & Plan Assessment & Plan (1) Osteoporosis: Code(s): M81.0 - Age-related osteoporosis without current pathological fracture Plan: This 67-year-old white female with a history of osteoporosis. Secondary causes were negative except for mild hypercalciuria . After being placed on HCTZ, 24 hour urine for calcium normal Plan is have a primary care provider recheck a DEXA bone density of the hip and spine in 06/2024. If the bone density continues to show osteoporosis, patient returned back to endocrinology was started on oral intravenous bisphosphonate by the patient's primary care provider Coding Level of Care Code Est Pt Level 3 (43984) Diagnoses Osteoporosis M81.0
== END 2023-10-21 11:17 | disposition home or self-care (01) ==
PROVIDERS: PCP Internal Medicine; Visit Provider Internal Medicine Endocrinology, Diabetes & Metabolism
DX: M81.0 Age-related osteoporosis without current pathological fracture (principal)
CPT/HCPCS: 99213

== ENCOUNTER → 2023-10-21 10:32 | Outpatient (BNVA) | payer MEDICARE, BC, SELFPAY | PROVIDERS: PCP Internal Medicine; Visit Provider Internal Medicine Endocrinology, Diabetes & Metabolism | DX: M81.0 Age-related osteoporosis without current pathological fracture (principal) | CPT/HCPCS: 99212 ==

== ENCOUNTER 2023-11-22 10:58 | Outpatient (REF) | payer MEDICARE, BC, SELFPAY | END 2023-11-22 10:59 | disposition home or self-care (01) | LOC: HO.MAMMO 10:58 | PROVIDERS: PCP Internal Medicine; Visit Provider Internal Medicine | DX: Z12.31 Encounter for screening mammogram for malignant neoplasm of breast (principal) | CPT/HCPCS: 77063; 77067 ==

== ENCOUNTER → 2023-11-22 11:00 | Outpatient (BNV) | payer MEDICARE, BC, SELFPAY | PROVIDERS: PCP Internal Medicine; Visit Provider Radiology Diagnostic Radiology | DX: Z12.31 Encounter for screening mammogram for malignant neoplasm of breast (principal) | CPT/HCPCS: 77063; 77067 ==

== ENCOUNTER 2024-01-27 11:04 | Outpatient (REF) | payer MEDICARE, BC, SELFPAY ==
[2024-01-27 11:12] LABS: MANUAL DIFF FLAG NO
[2024-01-27 11:38] LABS: Appearance Urine Clear; Color Urine Yellow; Glucose Urine UA Negative (Negative); Leukocyte Esterase Urine Large (3+) (Negative); Nitrite Urine Negative (Negative); Specific Gravity - Urine 1.015 (1.005-1.025); UMIC TRIGGER UACC YES; Urine Blood Negative (Negative); Urine Ketones Negative (Negative); Urine Protein Negative (Neg-Trace)
[2024-01-27 11:41] LABS: Bacteria Urine None Seen (None Seen); Hyaline Casts Urine 0-2 /LPF (0-2); RBC Urine 0-2 /HPF (0-2); UACC Culture Trigger YES
[2024-01-27 11:42] LABS: Basophils Absolute Auto 0.1 X10*3/uL (0.0-0.2); Eosinophils Absolute Auto 0.1 X10*3/uL (0.0-0.4); Eosinophils Percent Auto 1.9 % (0-4); Hemoglobin 14.9 g/dl (12.0-16.0); Imm Gran Abs Auto 0.02 X10*3/uL (0.00-0.03); Imm Gran Pct Auto 0.3 % (0.0-0.4); Lymphocytes Absolute Auto 2.3 X10*3/uL (1.2-4.9); Lymphocytes Percent Auto 38.2 % (20-40); Mean Corpuscular HGB Conc 33.1 g/dl (31.0-35.0); Mean Corpuscular Hemoglobin 29.2 pg (27.0-33.0); Mean Corpuscular Volume 88.2 fL (80.0-98.0); Mean Platelet Volume 11.1 fL (9.4-12.3); Monocytes Absolute Auto 0.8 X10*3/uL (0.1-1.2); Neutrophils Absolute Auto 2.7 x10*3/uL (2.0-8.3); Neutrophils Percent Auto 45.6 % (45-73); Platelet Count 238 X10*3/uL (160-400); Red Cell Distribution Width 13.6 % (11.0-16.0); White Blood Count 5.9 X10*3/uL (4.8-10.8)
[2024-01-27 11:53] LABS: Alanine Aminotransferase 24 U/L (0-31); Alkaline Phosphatase 70 U/L (39-117); Anion Gap 13 (12-20); Aspartate Amino Transferase 22 U/L (5-31); Bilirubin Total 0.6 mg/dL (0.0-1.0); Blood Urea Nitrogen 16 mg/dL (9-16); Calcium 9.1 mg/dL (8.4-10.2); Carbon Dioxide 28 mmol/L (22-29); Chloride 106 mmol/L (96-108); Cholesterol 223 mg/dL (<200); Estimated Glomerular Filt Rate > 60; Glucose Fasting 94 mg/dL (60-99); HDL Cholesterol 59 mg/dL (>40); LDL Cholesterol Calculated 144 mg/dL (<100); Potassium 3.7 mmol/L (3.3-5.1); Sodium 143 mmol/L (135-145); Total Protein 7.1 g/dL (6.5-8.0); Triglycerides 104 mg/dL (<150)
== END 2024-01-27 11:05 | disposition home or self-care (01) ==
LOC: HO.LNP 11:04
PROVIDERS: Visit Provider Internal Medicine
DX: I10 Essential (primary) hypertension (principal); E78.00 Pure hypercholesterolemia, unspecified; D70.9 Neutropenia, unspecified
CPT/HCPCS: 80053; 80061; 81001; 85025; 87086

== ENCOUNTER 2024-03-16 16:20 | Emergency (ER) | payer MEDICARE, BC, SELFPAY ==
--- NOTE | ~2024-03-16 | XR_ITS ---
EXAMINATION: XR ANKLE, LEFT CLINICAL INFORMATION: Fall with lateral pain and swelling COMPARISON: None available. TECHNIQUE: AP, lateral, and mortise views of the left ankle. FINDINGS: Diffuse soft tissue swelling about the ankle more so laterally. There is a obliquely oriented slightly displaced fracture through the lateral malleolus which is displaced slightly laterally and inferiorly. Otherwise the ankle mortise alignment appears grossly intact. Tibia appears intact. Calcaneal heel spur at the attachment point of the plantar aponeurosis. XR/XR ankle LT min 3V IMPRESSION: Minimally displaced obliquely oriented fracture through the lateral malleolus with associated soft tissue swelling. Electronically signed by: Chan Marie MD 03/16/2024 05:29 PM EDT
[2024-03-16 16:27] VITALS: BP 148/80; PULSE 84; O2SAT 98
--- NOTE | 2024-03-16 16:30 | ED.FALL ---
HPI - Fall General Chief Complaint: Fall Stated Complaint: Fall, ankle twist, popping sound Time Seen by Provider: 03/16/24 16:23 Source: patient and EMS Mode of arrival: EMS Limitations: no limitations History of Present Illness HPI Narrative: Patient is a 69-year-old female who presents to the emergency department for evaluation of a mechanical fall with traumatic left ankle pain. She was walking down 2 steps from her patio with a folding chair, missed a step inverting her left ankle and heard a popping sound. 8/10 pain to the lateral malleolus with localized swelling. Denies numbness tingling or cold sensation to the foot. Denies head strike or loss of consciousness. Denies use of anticoagulants or known coagulation disorders. Related Data Home Medications ?Medication ?Instructions ?Recorded ?Confirmed lisinopril 10 1 tab PO DAILY 01/24/22 08/10/22 mg-hydrochlorothiazide 12.5 mg tablet paroxetine HCl 20 mg tablet 20 mg PO DAILY 01/24/22 08/10/22 propranolol 60 mg capsule,24 60 mg PO DAILY 01/24/22 08/10/22 hr,extended release Previous Rx's ?Medication ?Instructions ?Recorded cyclobenzaprine 5 mg tablet 5 mg PO BEDTIME PRN muscle spasm 01/24/22 #14 tabs oxycodone 5 mg tablet 5 mg PO Q6H PRN pain #10 tabs 03/16/24 Allergies Allergy/AdvReac Type Severity Reaction Status Date / Time aspirin [ASA] Allergy Unknown HIVES Verified 03/16/24 16:36 codeine [CODEINE] Allergy Unknown AGITATION Verified 03/16/24 16:36 Iodinated Contrast Media Allergy Unknown Hives Verified 03/16/24 16:36 [IV CONTRAST] Review of Systems Review of Systems: Yes all other systems are reviewed and are negative [facility] Past Medical History Attestation statement: The following information was validated with the patient. Source: old records reviewed Medical History Osteoporosis Surgical History Hx of colonoscopy Family History Family History Mother Heart disease Hypertension Father FH: prostate cancer Social History Social History Household Members: Spouse Household Members Other:: , dog Alcohol intake: current Alcohol intake frequency: holidays/special occasions only Alcohol type: other Patient Tobacco Use Status: Never used Tobacco Smoked in Last 30 Days: No Second Hand Smoke Exposure: No Use of substances other than those prescribed or required for medical reasons: No Advance Directives: No Advance Directives Information Provided: No Do you have a plan to hurt others: No Plan Physical Exam Vital Signs: Vital Signs: Last Vital Signs Temp 98.0 F 03/16/24 17:54 Pulse 95 03/16/24 17:54 Resp 15 03/16/24 17:54 BP 137/77 03/16/24 17:54 Pulse Ox 95 03/16/24 17:54 O2 Del Method Room Air 03/16/24 17:54 BMI result Body Mass Index 30.6 Appearance: Alert.?Oriented to person, place and time. No acute distress.?Normal affect. Head: Normocephalic, atraumatic Eyes: Pupils equal, round and reactive to light.? ENT: Pharynx normal.?? Neck: Normal inspection.? Neck supple.?? CVS: Heart sounds normal. Normal heart rate and rhythm.? Pulses normal.?? Respiratory: No respiratory distress.? Lung sounds clear to auscultation bilaterally?? Skin: Skin warm and dry.? Normal skin color.? Extremities: Localized swelling to the left lateral malleolus. 2+ DP/PT pulse.? No calf ttp? Neuro: Moves all extremities spontaneously. Sensation intact bilaterally. CN II-XII intact. No focal neuro deficits. Course Reevaluation(s) Reevaluation #1: XR revealing a lateral malleolus fracture, post in a posterior short-leg splint, remained neurovascularly intact distally after application. Provided with discharge instructions, additional conservative treatment, outpatient follow-up with Orthopedics, worrisome signs and symptoms that would warrant re-evaluation in the emergency department, instructed on use of oxycodone for severe pain and precautions with its usage. Medications Administered Discontinued Medications Generic Name Dose Route Start Last Admin Trade Name Freq PRN Reason Stop Dose Admin Acetaminophen 975 mg 03/16/24 16:29 03/16/24 16:40 Acetaminophen 325 Mg Tablet PO 03/16/24 16:30 975 mg ONCE ONE Administration Procedures Orthopedic Splinting/Casting Injury #1: Side: left Lower Extremity Injury Location: lower leg Lower Extremity Immobilizer: posterior splint Other Orthopedic Equipment: crutches Medical Decision Making Medical Decision Making MDM Narrative: Patient is a 69-year-old female with past medical history of osteoporosis, hypertension who presents emergency department for evaluation of traumatic left ankle pain after a mechanical fall as per HPI. No head strike or loss of consciousness, would defer CT head imaging unlikely to have ICH, fracture. XR being obtained of the left ankle to exclude fracture/dislocation, has localized swelling to the lateral malleolus, 2+ DP/PT pulse, CMS intact distally. Requesting acetaminophen for pain which is reasonable at this time. Differential Diagnosis Differential Diagnoses: The differential diagnosis associated with the presentation includes (See narrative above) Independent Interpretation I performed an independent interpretation of an: Plain X-Ray (Lateral malleolus fracture) Radiology Impression Discussion of test interpretation with radiology: I have reviewed the radiologist's reading. Radiologist Impression: XR/XR ankle LT min 3V IMPRESSION: Minimally displaced obliquely oriented fracture through the lateral malleolus with associated soft tissue swelling. Independent Historian Clinical information obtained from an independent historian. History obtained from or confirmed by: EMS External Record Review External record reviewed: Outpatient record and Other ([employer], no conflicts) Prescription Management I considered prescription management with: Pain Medication Discharge Plan Discharge Clinical Impression: Fracture of lateral malleolus Qualifiers: Encounter type: initial encounter Fracture type: closed Fracture alignment: displaced Laterality: left Qualified Code(s): S82.62XA - Displaced fracture of lateral malleolus of left fibula, initial encounter for closed fracture Patient Disposition: Home, Self-Care Instructions: Ankle Fracture (ED), Crutch Instructions (ED), R.I.C.E. Treatment (ED) Additional Instructions: You can take Tylenol 500 mg, 2 tablets (1,000mg) every 4-6 hours as needed for pain, but not to exceed 3 doses daily (3,000mg). For pain unrelieved by this a prescription for oxycodone has been sent to your pharmacy. This is a narcotic medication. It may make you drowsy. You should not drive, drink alcohol, or work while taking this medication. Additionally it may make you constipated, please be sure that you are staying well hydrated drinking plenty of fluids, you may consider the use of a stool softener while taking this. The splint should remain in place until you are evaluated by orthopedics. It can not get wet. Please contact Orthopedics office tomorrow to arrange for a follow-up appointment. You may return back to emergency department any new or worsening symptoms or concerns. ? Prescriptions: New oxycodone 5 mg tablet 5 mg PO Q6H PRN (Reason: pain) Qty: 10 0RF Rx Instructions: Partial Fill upon patient request. No Action paroxetine HCl 20 mg tablet 20 mg PO DAILY lisinopril-hydrochlorothiazide 10-12.5 mg tablet 1 tab PO DAILY propranolol 60 mg capsule,extended release 24 hr 60 mg PO DAILY cyclobenzaprine 5 mg tablet 5 mg PO BEDTIME PRN (Reason: muscle spasm) Qty: 14 0RF Referrals: Bhavin Marin MD [Primary Care Provider] - Jim Romero MD [Physician] - Print Language: Citizen Of [place]
[2024-03-16 16:31] VITALS: BP 145/75; PULSE 73; RESP 16; TEMP 36.7; O2SAT 98; BMI 30.6
[2024-03-16] MEDS: Acetaminophen 325 MG TABLET 975 MG PO (16:40)
[2024-03-16 17:54] VITALS: BP 137/77; PULSE 95; RESP 15; TEMP 36.7; O2SAT 95
[2024-03-16 19:52] VITALS: BP 137/77; PULSE 95; RESP 15; TEMP 36.7; O2SAT 95
== END 2024-03-16 19:53 | disposition home or self-care (01) ==
PROVIDERS: Emergency Provider Emergency Medicine; PCP Internal Medicine
DX: S82.62XA Displaced fracture of lateral malleolus of left fibula, initial encounter for closed fracture (principal); W17.89XA Other fall from one level to another, initial encounter; Y93.89 Activity, other specified; Y92.9 Unspecified place or not applicable; Y99.9 Unspecified external cause status; M25.572 Pain in left ankle and joints of left foot; Z79.899 Other long term (current) drug therapy
CPT/HCPCS: 29515; 73610; 99283; 99284

== ENCOUNTER 2024-08-07 09:14 | Outpatient (REF) | payer MEDICARE, BC, SELFPAY ==
--- NOTE | ~2024-08-07 | MM_ITS ---
EXAMINATION: DXA BONE DENSITY AXIAL HISTORY: Estrogen deficiency TECHNIQUE: The [employer] Dual energy absorptiometry (DEXA) of the lumbar spine, total left hip, and femoral neck was performed. COMPARISON: Comparison is made with the prior examination dated 06/29/2022. FINDINGS: The bone mineral density of the lumbar spine is 1.058 with a T-score of -0.9, and a Z-score of 0.3. This represents a BMD change of 7.1% compared to the prior exam. This is statistically significant. The bone mineral density of the left total hip is 0.848 with a T-score of -1.3, and a Z-score of -0.3. This represents BMD change of 16.6% compared to the prior exam. This is statistically significant. The bone mineral density of the left femoral neck is 0.815 with a T-score of -1.6, and a Z-score of -0.2. This represents BMD change of 23.7% compared to the prior exam. MM/XR DEXA axial skeleton IMPRESSION: Based on bone mineral density, and according to World Health Organization (WHO) criteria, the diagnosis is consistent with osteopenia. All bone density values are in grams per centimeter squared (g/cm2). Statistically, 68% of repeat scans fall within 1 SD (+/- 0.010 g/cm2 for AP spine L1-L4) and 1 SD (+/- 0.012 g/cm2 for femur total) FRAX is a trademark of the [employer]'s [employer] Metabolic Bone Disease, a World Health Organization (WHO) Collaborating Center. Electronically signed by: Jordy Archibald MD 08/07/2024 10:15 AM [facility]
== END 2024-08-07 09:15 | disposition home or self-care (01) ==
LOC: HO.MAMMO 09:14
PROVIDERS: PCP Internal Medicine; Visit Provider Internal Medicine
DX: M81.0 Age-related osteoporosis without current pathological fracture (principal)
CPT/HCPCS: 77080

== ENCOUNTER → 2024-08-07 09:15 | Outpatient (BNV) | payer MEDICARE, BC, SELFPAY | PROVIDERS: PCP Internal Medicine; Visit Provider Radiology Diagnostic Radiology | DX: M85.89 Other specified disorders of bone density and structure, multiple sites (principal) | CPT/HCPCS: 77080 ==

== ENCOUNTER 2024-11-27 10:44 | Outpatient (REF) | payer MEDICARE, BC, SELFPAY ==
--- OUTSIDE RECORDS SUMMARY | 2024-11-27 11:16 | XMS_ITS ---
Author Organization Bhavin Marin MD Address [address] [place] [phone] Care Team Providers Care Paramedical Aide Name Role Phone Bhavin Marin Primary Care Provider REASON FOR VISIT Bone Density due Encounters Encounter Location Date Provider Diagnosis Bhavin Marin MD 10 [facility] [address] [place] [phone] 06/30/2024 Bhavin Marin Plan Of Treatment Next Appt Details Provider Name:Bhavin martínez, 01/29/2025 07:00:00 AM, [address] [place] [address], [address], [phone], Provider Name:Bhavin Quinones ier, 02/05/2025 11:00:00 AM, [address] [place] [address], [address], [phone], Progress Notes * Mirna DUMONT CDOB: (69 yo F)Acc No.[id number]:06/30/2024 Patient:?Mirna Dumont :1955???Age:69 Y???Sex:Female Address:[address] [place] [address] * true * Date:? Generated for Vickyi bello/Rod/Edgaritting on:?11/27/2024 11:16 AM EDT
--- OUTSIDE RECORDS SUMMARY | 2024-11-27 11:16 | XMS_ITS | Patient Health Record ---
Author Organization Bhavin Marin MD Address [address] [place], [place] [id number] Care Team Providers Care Polisher Sand Name Role Phone Bhavin Marin Primary Care Provider [phone] Allergies Allergen (clinical drug ingredient) Drug/Non Drug Allergy documented on EMR Reaction Allergy Type Onset Date Status sulfamethoxazole / trimethoprim Bactrim (uncoded) rash Allergy Active amoxil (uncoded) hives Allergy Act armand aspirin aspirin (uncoded) rash Allergy Ac tive IVP Dye (uncoded) hives Allergy Ac tive Results Component Value Reference Range Notes Complete Blood Count Auto Di ff Reviewed date:01/27/2024 06:19:09 PM Interpretation: Performing Lab:[facility], [address] [place] [phone] Notes/Report: White Blood Count 5.9 4.8-10.8 X10*3/uL Red Blood Count 5.10 4.20-5.50 X10*6/uL Hemoglobin 14.9 12.0-16.0 g/dl Hematocrit 45.0 37.0-47.0 % Mean Corpuscular Volume 88.2 80.0-98.0 fL Mean Corpuscular Hemoglobin 29.2 27.0-33.0 pg Mean Corpuscular HGB Conc 33.1 31.0-35.0 g/dl Red Cell Distribution Width 13.6 11.0-16.0 % Platelet Count 238 160-400 X10*3/uL Mean Platelet Volume 11.1 9.4-12.3 fL Neutrophils Percent Auto 45.6 45-73 % Imm Gran Pct Auto 0.3 0.0-0.4 % Lymphocytes Percent Auto 38.2 20-40 % Monocytes Percent Auto 13.0 2-11 % Eosinophils Percent Auto 1.9 0-4 % Basophils Percent Auto 1.0 0-2 % NRBC Pct Auto 0.0 0.0-0.2 /100WBC Neutrophils Absolute Auto 2.7 2.0-8.3 x10*3/u L Imm Gran Abs Auto 0.02 0.00-0.03 X10*3/uL Lymphocytes Absolute Auto 2.3 1.2-4.9 X10*3/u L Monocytes Absolute Auto 0.8 0.1-1.2 X10*3/uL Eosinophils Absolute Auto 0.1 0.0-0.4 X10*3/u L Basophils Absolute Auto 0.1 0.0-0.2 X10*3/uL NRBC Abs Auto 0.000 0.0-0.012 X10*3/uL Comprehensive Mora. Panel Fa st Reviewed date:01/27/2024 06:18:45 PM Interpretation: Performing Lab:[facility], [address] [place] [phone] Notes/Report: Sodium 143 135-145 mmol/L Potassium 3.7 3.3-5.1 mmol/L Chloride 106 96-108 mmol/L Carbon Dioxide 28 22-29 mmol/L Anion Gap 13 12-20 Blood Urea Nitrogen 16 9-16 mg/dL Creatinine 0.80 0.5-1.4 mg/dL Estimated Glomerular Filt Rate > 60 NOTE: For -Tristanian individuals, multiply the result by 1.210. Chronic Kidney Disease: Estimated GFR < 60 mL/min/1.73m2 Severe Kidney Disease: Estimated GFR < 15 mL/min/1.73m2 Glucose Fasting 94 60-99 mg/dL Calcium 9.1 8.4-10.2 mg/dL Bilirubin Total 0.6 0.0-1.0 mg/dL Aspartate Amino Transferase 22 5-31 U/L Alanine Aminotransferase 24 0-31 U/L Total Protein 7.1 6.5-8.0 g/dL Albumin Level 4.0 3.5-5.0 g/dL Alkaline Phosphatase 70 39-117 U/L Lipid Panel Reviewed date:01/27/2024 12:37:41 PM Interpretation: Performing Lab:[facility], [address] [place] [phone] Notes/Report: Triglycerides 104 <150 mg/dL Desirable Triglyceride: less than 150 mg/dL Borderline High Triglyceride 150-199 mg/dL High Triglyceride: 200-499 mg/dL Very High Triglyceride: greater than or equal to 5OO mg/dL Cholesterol 223 <200 mg/dL Desirable Cholesterol: less than 200 mg/dL Borderline High Cholesterol: 200-239 mg/dL High Cholesterol: greater than 239 mg/dL LDL Cholesterol Calculated 144 <100 mg/dL Desirable LDL: less than 100 mg/dL Near Optimal/Above Optimal LDL: 110-129 mg/dL Borderline High LDL: 130-159 mg/dL High LDL: 160-189 mg/dL Very High LDL: greater than or equal to 190 mg/dL HDL Cholesterol 59 >40 mg/dL Desirable HDL: greater than 40 mg/dL Note: This HDL assay may give artificially low results in patients with liver disease. UA ClnCatch+Micro w/rflx Cul t Reviewed date:01/27/2024 06:19:58 PM Interpretation: Performing Lab:[facility], [address] [place] [phone] Notes/Report: [id number] Urine, Clean Catch Color Urine Yellow Appearance Urine Clear PH 6.0 5.0-9.0 Glucose Urine UA Negative Negative mg/dL Urine Blood Negative Negative Specific [place] - Urine 1.015 1.005-1.025 Urine Protein Negative Neg-Trace mg/dL Urine Ketones Negative Negative mg/dL Nitrite Urine Negative Negative Leukocyte Esterase Urine Large (3+) Negative RBC Urine 0-2 0-2 /HPF WBC Urine 11-20 0-5 /HPF Squamous Epithelial Cell Urine 3-5 0-2 /HPF Bacteria Urine None Seen None Seen Hyaline Casts Urine 0-2 0-2 /LPF Hold Gold Reviewed date:01/27/2024 12:34:45 PM Interpretation: Performing Lab:[facility], [address] [place] [phone] Notes/Report: Hold Gold See Note Specimen held untested for 24 hours; Call to request Chemistry testing. Urine Culture Reviewed date:01/28/2024 10:43:19 AM Interpretation: Performing Lab:[facility], [address] [place] [phone] Notes/Report: Urine Culture Report Result Urine Culture 50,000 to 100,000 cfu/ml Urine Culture Mixed bacterial misty a characteristic of Urine Culture urogenital contamination. XR ankle LT min 3V Reviewed date:03/17/2024 01:05:41 PM Interpretation: Performing Lab: Notes/Report: [address] [address] XRay Report Signed Patient: Mirna Shore MR#: [id number] : 1955 Acct:[id number] Age/Sex: 69 / F ADM Date: 03/16/24 Loc: .ED Attending Dr: Ordering Physician: Shirlene East CNP Date of Service: 03/16/24 Procedure(s): XR ankle LT min 3V Accession Number(s): [id number] cc: Shirlene East CNP; Bhavin Marin MD EXAMINATION: XR ANKLE, LEFT CLINICAL INFORMATION: Fall with lateral pain and swelling COMPARISON: None available. TECHNIQUE: AP, lateral, and mortise views of the left ankle. FINDINGS: Diffuse soft tissue swelling about the ankle more so laterally. There is a obliquely oriented slightly displaced fracture through the lateral malleolus which is displaced slightly laterally and inferiorly. Otherwise the ankle mortise alignment appears grossly intact. Tibia appears intact. Calcaneal heel spur at the attachment point of the plantar aponeurosis. XR/XR ankle LT min 3V IMPRESSION: Minimally displaced obliquely oriented fracture through the lateral malleolus with associated soft tissue swelling. Electronically signed by: Chan Marie MD 03/16/2024 05:29 PM EDT Dictated By: Chan Marie MD Signed By: <Electronically signed by Chan Marie MD in OV> 03/16/24 1729 DD/ 1629 TD/TT: 09/02/24 1709 Cattle Feeder: MATT [address] [place] [address] XRay Report Signed Patient: Susanne Shore MR#: [id number] : 1955 Acct:[id number] Age/Sex: 69 / F ADM Date: 03/16/24 Loc: HO.ED Attending Dr: Ordering Physician: Shirlene East CNP Date of Service: 03/16/24 Procedure(s): XR ank le LT min 3V Accession Number(s): [id number] cc: Shirlene East CNP; Bhavin Marin MD EXAMINATION: XR ANKLE, LEFT CLINICAL INFORMATION: Fall with lateral pa in and swelling COMPARISON: None available. TECHNIQUE: AP, lateral, and mortise views of the left ankle. FINDINGS: Diffuse soft tissue swelling about the ankle more so laterally. There is a obliquely orien sy slightly displaced fracture through the lateral malleolus which is displaced slightly laterally and inferiorly. Otherwise the ankle mortise alignment appears grossly intact. Tibia appears intact. Calcaneal heel spur at the attachment point of the plantar aponeurosis. XR/XR ankle LT min 3V IMPRESSION: Minimally displaced obliquely oriented fracture through the lateral malleolus with associated soft tissue swelling. Electronically nathalie d by: Chan Marie MD 03/16/2024 05:29 PM EDT Dictated By: Chan Marie MD Signed By: <Electronically signed by Chan Marie MD in OV> 03/16/24 172 DD/ 1629 TD/TT: 03/16/241708 Cattle Feeder: MATT XR DEXA axial skeleton Reviewed date:08/07/2024 01:27:08 PM Interpretation: Performing Lab: Notes/Report: [facility] [address] [place] [address] Mammography Report Signed Patient: Mirna Shore MR#: [id number] : 1955 Acct:[id number] Age/Sex: 69 / F ADM Date: 08/07/24 Loc: HO.MAMMO Attending Dr: Bhavin Marin MD Ordering Physician: Bhavin Marin MD Results: Date of Service: 08/07/24 Follow Up: Procedure(s): XR DEXA axial skeleton Accession Number(s): [id number] cc: Bhavin Marin MD EXAMINATION: DXA BONE DENSITY AXIAL HISTORY: Estrogen deficiency TECHNIQUE: [employer] Dual energy absorptiometry (DEXA) of the lumbar spine, total left hip, and femoral neck was performed. COMPARISON: Comparison is made with the prior examination dated 06/29/2022. FINDINGS: The bone mineral density of the lumbar spine is 1.058 with a T-score of -0.9, and a Z-score of 0.3. This represents a BMD change of 7.1% compared to the prior exam. This is statistically significant. The bone mineral density of the left total hip is 0.848 with a T-score of -1.3, and a Z-score of -0.3. This represents BMD change of 16.6% compared to the prior exam. This is statistically significant. The bone mineral density of the left femoral neck is 0.815 with a T-score of -1.6, and a Z-score of -0.2. This represents BMD change of 23.7% compared to the prior exam. MM/XR DEXA axial skeleton IMPRESSION: Based on bone mineral density, and according to World Health Organization (WHO) criteria, the diagnosis is consistent with osteopenia. All bone density values are in grams per centimeter squared (g/cm2). Statistically, 68% of repeat scans fall within 1 SD (+/- 0.010 g/cm2 for AP spine L1-L4) and 1 SD (+/- 0.012 g/cm2 for femur total) FRAX is a trademark of the [employer]'s [place] [facility] Met[facility] [employer] Disease, a World Health Organization (WHO) Collaborating Center. Electronically signed by: Jordy Archibald MD 08/07/2024 10:15 AM [facility] Dictated By: Jordy Archibald MD Signed By: <Electronically signed by Jordy Archibald MD in OV> 08/07/24 1015 DD/ 0920 TD/TT: 08/07/24 0941 Cattle Feeder: [facility] [address] [place] [address] [place], [place] [address] Mammography Report Signed Patient: Susanne Shore MR#: [id number] : 1955 Acct:[id number] Age/Sex: 69 / F ADM Date: 08/07/24 Loc: HO.MAMMO Attending Dr: Bhavin Marin MD Ordering Physician: Bhavin Marin MD Results: Date of Service: 08/07/24 Follow Up: Procedure(s): XR DEX A axial skeleton Accession Number(s): [id number] cc: Bhavin Marin MD EXAMINATION: DXA BON E DENSITY AXIAL HISTORY: Estrogen deficiency TECHNIQUE: [employer] Dual energy absorptiometry (DEXA) of the lumbar spine, total left hip, and femoral neck was performed. COMPARISON: Comparis on is made with the prior examination dated 06/29/2022. FINDINGS: The bone mineral density of the lumbar spine is 1.058 with a T-score of -0.9, and a Z-score of 0.3. This represents a BM D change of 7.1% compared to the prior exam. This is statistically significant. The bone mineral density of the left total hip is 0.848 with a T-score of -1.3, and a Z-sco re of -0.3. This represents BMD change of 16.6% compared to the prior exam. This is statistically significant. The bone mineral density of the left femoral neck is 0.815 with a T-score of -1.6, and a Z-score of -0.2. This represents BMD change of 23.7% compared to the prior exam. ___ MM/XR DEXA axial skeleton IMPRESSION: Based on bone minera l density, and according to World Health Organization (WHO) criteria, the diagnosis is consistent with osteopenia. All bone density jose ues are in grams per centimeter squared (g/cm2). Statistically, 68% o f repeat scans fall within 1 SD (+/- 0.010 g/cm2 for AP spine L1-L4) and 1 SD (+/- 0.012 g/cm2 for femur total) FRAX is a trademark of the [employer] [place] [facility] [employer] Disease, a World Health Organization (WHO) Collaborating Center. Electronically nathalie d by: Jordy Archibald MD 08/07/2024 10:15 AM [facility] Dictated By: Jordy Archibald MD Signed By: <Electronically signed by Jordy Archibald MD in OV> 08/07/24 1015 DD/ 0920 TD/TT: 08/07/24 0941 Cattle Feeder: Reason For Referral Reason pain in left knee Diagnosis 1 Pain in left knee (M 25.562) Referral Organization Bhavin Marin MD Referring Provider First Name Bhavin Referring Provider Last Name Tania Referring Provider Speciality Internal M edicine Referred Provider AKASH HOLLINGSWORTH Referred Provider Specialty [facility] General Notes Nayely Kessler 02/17/2024 10:10:16 AM EDT > REFERRAL FAXED, REQUEST NEW PATIENT APPT, Nayely Kessler 02/20/2024 10:33:07 AM EDT > I SPOKE TO MIRNA , SHE WANTS TO MAKE HER OWN APPT SHE IS IN [place] PART OF THE WEEK [place] . REMINDED HER TO LET US KNOW WHEN APPT IS SCHEDULED, Kim Valdes 03/02/2024 01:56:21 PM EDT > spoke with patient she will be calling me back with appt date and time , Kim Valdes 03/13/2024 08:52:05 AM EDT > spoke with patient this is still being worked on, Kim Valdes 03/30/2024 09:06:16 AM EDT > spoke with patient she ened up with a broken left ankle and has surgery. Referral Priority Routine Referral Appointment Date 03/19/2024 Reason colon cancer screeni ng needs colonoscopy Diagnosis 1 Colon cancer screeni ng (Z12.11) Referral Organization Bhavin Marin MD Referring Provider First Name Bhavin Referring Provider Last Name Tania Referring Provider Speciality Internal M edicine Referred Provider Blair Kraft Referred Provider Specialty Gastroentero logy General Notes DewaynevikiCarmenMikeNayely Be 02/17/2024 10:03:47 AM EDT > REFERRAL FAXED 02/17/24, SharadCarmenMckeonNayely 02/20/2024 10:12:00 AM EDT > REFERRAL NOT RECD [facility] , REFAX TODAY, VictoriaNayely 02/20/2024 10:52:38 AM EDT > [facility] CONFIRMED HER APPT OF 06/08/24 AT 11:20AM, Kim Valdes 02/28/2024 01:20:24 PM EDT > info mailed Referral Priority Routine Referral Appointment Date 06/08/2024 Medications Medication SIG (Take, Route, Frequency, Duration) [...] BY MOUTH EVERY DAY for 90 Active Immunizations Vaccine Route Administration Date Status Comme nts Flu Vaccine Unknown 06/19/2012 Administered Flu Vaccine Unknown 05/03/2013 Administered given at [facility] Fluarix Quadrivalent IM Intramuscular 04/18/2015 Administe red pt received the vaccine in [facility] in [place]. Flu Vaccine ID Intradermal 04/21/2016 Administered Neha funk Flu Vaccine IM Intramuscular 04/19/2017 Administered pt wa s given the vaccine at [facility]. PPSV23 (Pnemovax) IM Intramuscular 12/10/2017 Administered Prevnar 13 IM Intramuscular 12/30/2018 Administered Influenza High Dose IM Intramuscular 04/14/2019 Administer ed pt was given the vaccine at [facility] in [place]. Influenza High Dose Unknown 04/12/2020 Administered [facility] SARS-COV-2 Pfizer Unknown 09/13/2020 Administered SARS-COV-2 Pfizer Unknown 10/13/2020 Administered Influenza High Dose Unknown 05/01/2021 Administered [facility] SARS-COV-2 Pfizer Unknown 05/12/2021 [facility]ered [facility] Fluarix Quadrivalent Unknown 04/25/2022 [facility] Influenza High Dose Unknown 04/12/2023 Administered SARS-COV-2 Moderna 2022 Unknown 07/28/2023 Administered Influenza High Dose Unknown 04/28/2024 Administered [facility] SARS-COV-2 Pfizer Unknown 05/09/2024 Administered [facility] Flu Vaccine Unknown 05/04/2014 Pending Social History Tobacco Use: Social History Observation Description Date Details (start date - stop date) Never Smoker NA - NA Tobacco Use/Smoking Question Answer Notes Patient is a nonsmoker Additional Findings: Tobacco Non-User Cu rrent non-smoker, currently using no form of tobacco Alcohol Screen Question Answer Notes Did you have a drink contain ing alcohol in the past year? Yes How often did you have a dri nk containing alcohol in the past year? Monthly or less (1 point) How many drinks did you have on a typical day when you were drinking in the past year? 1 or 2 drinks (0 point) How often did you have 6 or more drinks on one occasion in the past year? Never (0 point) Points 1 Interpretation Negative Problems Problem Type SNOMED Code ICD Code Onset Dates Problem Status W/U Status Risk Notes Problem 23907232 Age-related osteoporosis without current pathological fracture (M81.0) Active confirmed Problem 033193295 Neutropenia (D70.9) Active confirmed Problem 14087160 Lymphocytosis (D72.820) Active confirmed Problem 00973163 Depression (F32.9) Active confirmed Problem Neutropenia (699708025) Neutropenia, unspecified (D70.9) Active confirmed Problem 894506574 Essential tremor (G25.0) Active confirmed Problem Essential hypertension (12354194) Essential (primary) hypertension (I10) Active confirmed Problem Unspecified jo ann pausal and perimenopausal disorder (N95.9) Active confirmed Problem 19081688 Essential hypert ension (I10) Active confirmed Problem 605904301 Pure hypercholesterolemia (E78.00) Active confirmed Problem 031427487 Osteopenia, unspecified location (M85.80) Active confirmed Problem Hypercalciuria (47599387) Hypercalciuria (E83.50) Active confirmed Vital Signs Blood pressure diastolic 64 mm Hg 08/07/2024 lynette ght is down 4 pounds since 02-03-24 Height 68 in 09/03/2024 weight is 180 a t home BP not taken no temp Blood pressure systolic 98 mm Hg 08/07/2024 lynetteg ht is down 4 pounds since 02-03-24 Weight 189 lbs 08/07/2024 weight is down 4 pounds since 02-03-24 BMI 28.73 kg/m2 08/07/2024 weight is down 4 pounds since 02-03-24 Encounters Encounter Location Date Provider Diagnosis Bhavin Marin MD [address] [place] [id number] 01/27/2024 Bhavin Marin Essential hypertensi on I10 ; Pure hypercholesterolemia E78.00 and Neutropenia D70.9 Bhavin Marin MD [address] [place] [address] [id number] 02/03/2024 Bhavin Marin Pain in left knee M2 5.562 ; Pain in right knee M25.561 ; Age-related osteoporosis without current pathological fracture M81.0 and Essential hypertension I10 Bhavin Marin MD [address] [place] [id number] 06/09/2024 Bhavin Marin Acute bronchitis, unspecified organism J20.9 Bhavin Marin MD [address] [place] [address] Drive [address] [place] [id number] 08/07/2024 Bhavin Marin Risk for falls Z91.8 1 ; Anxiety, generalized F41.1 and Essential hypertension I10 Bhavin Marin MD [address] [place] [address] Drive [address] [place] [id number] 09/03/2024 Bhavin Marin Viral URI with cough J06.9 Bhavin Marin MD [address] [place] [id number] 03/19/2024 Bhavin Marin MD [address] [place] [address] Drive [address] [place] [id number] 06/30/2024 Bhavin Marin Assessments Encounter Date Diagnosis (ICD Code) Assessment Notes Treatment Notes Treatment Clinical Notes Section Notes 01/27/2024 Essential hypertensi on (ICD-10 - I10) 01/27/2024 Pure hypercholesterolemia (ICD-10 - E78.00) 02/03/2024 Pain in left knee (ICD-10 - M25.562) referral to [facility] 02/03/2024 Pain in right knee (ICD-10 - M25.561) 06/09/2024 Acute bronchitis, unspecified organism (ICD-10 - J20.9) patient verbalized understanding of medication and directions for use. 08/07/2024 Risk for falls (ICD- 10 - Z91.81) will try tapering the paxil and have her do exercise to strength 08/07/2024 Anxiety, generalized (ICD-10 - F41.1) is going to try decreasing paxil and see if that may be a cause of her falling. only 4 falls in 11 years so difficult to know if it is cause 09/03/2024 Viral URI with cough (ICD-10 - J06.9) expolained that a zpack won't help as it is moat certainly a virus since everyone in her family has it. advised to get a swab for flu and covid and rsv which she choses not 01/27/2024 Neutropenia (ICD-10 - D70.9) 02/03/2024 Age-related osteoporosis without current pathological fracture (ICD-10 - M81.0) order printed and put in future folder 08/07/2024 Essential hypertensi on (ICD-10 - I10) stable, will continue current regiment 02/03/2024 Essential hypertensi on (ICD-10 - I10) 02/03/[address] kraft advised to get shingles vaccine Plan Of Treatment Pending Test Test Name Order Date Electrocardiogram (EKG) 11/24/2015 Electrocardiogram (EKG) 12/06/2016 Electrocardiogram (EKG) 12/19/2017 MAMMOGRAM DIGITAL BILATERAL SCREEN 03/31 MAMMOGRAM DIGITAL BILATERAL SCREEN 10/14 COLOGUARD 01/19/2020 COLOGUARD 01/19/2019 BONE DENSITY DEXA 01/25/2022 Future Test Test Name Order Date BONE DENSITY DEXA 08/05/2024 Next Appt Details Provider Name:Bhavin martínez, 01/29/2025 07:00:00 AM, [address] [place] [address], [address], [place], [place], [phone], Provider Name:Bhaivn martínez, 02/05/2025 11:00:00 AM, [address], [address], [place], [place], [phone], Insurance Providers Payer Name Payer Address Payer Phone Subscriber Number Group Number Insured Name Patient Relationship to Insured Coverage Start Date Coverage End Date [employer] [address] [place] [address] [id number] Mirna Shore Self - patient is the insured [employer] [facility] [address] [place], [place] [id number] Mirna Shore Self - patient is the insured Medical (General) History Medical History History ICD Code colonoscopy 07/12/10 - repeat in 10 year s; negative Cologuard January 2020 [facility] [employer] , [facility], [place]. Adam gómez mammo at [facility], [facility] going to get colonoscopy 2022 advised to get shingles vaccine 2023
--- OUTSIDE RECORDS SUMMARY | 2024-11-27 11:16 | XMS_ITS ---
Author Organization Bhavin Mrain MD Address [address] [place] [phone] Care Team Providers Care Real Estate Financial Analyst Name Role Phone Bhavin Marin Primary Care [...] kg/m2 08/07/2024 weight is down 4 pounds [facility] e 02-03-24 Encounters Encounter Location Date Provider Diagnosis Bhavin Marin MD [address] [place] [address] [place] [phone] 08/07/2024 Bhavin Marin Risk for falls Z91.8 [...] regiment Next Appt Details Provider Name:Bhavin martínez, 01/29/2025 07:00:00 AM, [address] [place] [address], Suite [facility], [place], [place], [phone], Provider Name:Bhavin martínez, 02/05/2025 11:00:00 AM, [address] [place] [address], Suite [facility], [place], [place], [phone], Progress Notes * Mirna DUMONT CDOB: 4 (69 yo F)Acc No.[id number]:08/07/2024 Progress Notes Patient:?Mirna DUMONT Provider:?Bhavin Marin MD :1955???Age:69 Y???Sex:Female D ate:08/07/2024 Address:[address] [id number] Subjective: * Chief Complaints: * ???6 month * HPI: ???Symptom(s):?patient is a 69 yo female here for 6 month follow up. had surgery on her ankle and is finally getting. better. * ROS:?General/Constitutional:?Denies?Chills.?Denies?Fatigue.?Denies?Fever.?Denies?Headache.?ENT:?Patient denies?decreased sense of smell, any loss of taste, sore throat.?Denies?Sore throat.?Respiratory:?Denies?Cough.?Denies?Shortness of breath at rest.?Denies?Shortness of breath with exertion.?Gastrointestinal:?Denies?Diarrhea.?Denies?Nausea.?Musculoskeletal:?Patient denies?muscle aches.?Peripheral Vascular:?Patient denies?red and blue toes.? * Medical History:? * Surgical History:? * Hospitalization/Major Diagno stic Procedure:? * Medications:?TakingVitamin D (Cholecalciferol) 1000 UNIT Tablet 1 tablet [...] reviewed and reconciled with the patient * Allergies:?IVP Dye: hivesasp irin: rashamoxil: hivesBactrim: rashyes[Allergies Verified] Objective: * Vitals:?Ht: 68, Wt: 189, BMI :28.73, BP:98/64, Wt-k.73. weight is down 4 pounds since 02-03-24. * Examination: ???General Examination: ?GENERAL APPEARANCE:?alert, well hydrated, in no distress.?HEAD:?normocephalic.?SKIN:?, good turgor.?HEART:?regular rate and rhythm, no murmurs, rubs, gallops.?LUNGS:?no wheezes, rales, rhonchi, good air movement.? Assessment: * Assessment: 1.?Risk for falls - Z91.81 ( Primary)???2.?Anxiety, generalized - F41.1???3.?Essential hypertension - I10??? Plan: * Treatment: 2.?Anxiety, generalized? Notes: is going to try decreasing paxil and see if that may be a cause of her falling. only 4 falls in 11 years so difficult to know if it is cause?? 3.?Essential hypertension? Continue hydroCHLOROthiazide Tablet, 25 MG, TAKE 1 TABLET BY MOUTH EVERY DAY IN THE MORNING FOR 90 DAYS.?? Notes: stable, will continue current regiment?? * Procedure Codes:? * * Sign off status: Completed true * Provider:?Bhavin Marin MD Date:?0 08/07/2024 Generated for Shyam monsalve/Rdo/eTstefaniitting on:?11/27/2024 11:16 AM EDT History and Physical Notes * HPI [...]
--- OUTSIDE RECORDS SUMMARY | 2024-11-27 11:16 | XMS_ITS ---
Author Organization Bhavin Marin MD Address [address] [place] [phone] Care Team Providers Care Airport Driver Name Role Phone Bhavin Marin Primary Care Provider [phone] Allergies Allergen (clinical drug ingredient) Drug/Non Drug [...] days Did not test for Covid, Video [phone] Medications Medication SIG (Take, Route, Frequency, Duration) [...] Location Date Provider Diagnosis Bhavin Marin MD [address] [place] [address] [place] [phone] 09/03/2024 Bhavin Marin Viral URI with cough [...] not Next Appt Details Provider Name:Bhavin martínez, 01/29/2025 07:00:00 AM, [address] [place] [address], [place] [address], [place], [place], [phone], Provider Name:Bhavin martínez, 02/05/2025 11:00:00 AM, [address] [place] [address], [place] [address], [place], [place], [phone], Progress Notes * Mirna DUMONT CDOB: (69 yo F)Acc No.[id number]:09/03/2024 Patient:?Mirna DUMONT Provider:?Bhavin Marin MD :1955???Age:69 Y???Sex:Female D ate:09/03/2024 Address: [address] [id number] Subjective: * Chief Complaints: * ???c/o chills, achy headache , started with a sore throat 3 days ago, runny nose congestion x 4 days Did not test for CovidVideo [phone] * HPI: ???Symptom(s):?Telehealth?Location of provider rendering services:?[address], [address],?Location of patient:?at address listed in demographics for today's visit,?Patient identification confirmed using:?Name, ,?Telehealth method:?Video conference where patient is visible to the provider of care,?Consent:?Patient verbally consented to treatment, Patient verbally consented to billing insurance company, Patient informed of any privacy concerns related to method of visit,?Total time spend talking with patient (minutes)?16.?neymar is a 69 yo female video telehealth visit, ?having cough some green phlegm sniffles and running nose. would like a zpack. * ROS:?General/Constitutional:?Admits?Chills.?Denies?Fatigue.?Denies?Fever.?Denies?Headache.?ENT:?Patient denies?decreased sense of smell, any loss of taste.?Admits?Sore throat.?Respiratory:?Admits?Cough.?Denies?Shortness of breath at rest.?Denies?Shortness of breath with exertion.?Admits?Sputum production.?Musculoskeletal:?Patient denies?muscle aches.?Peripheral Vascular:?Patient denies?red and blue toes.? [...] rashamoxil: hivesBactrim: rashyes[Allergies Verified] Objective: * Vitals:?Ht: 68. weight is 180 at home BP? not taken no temp. * Examination: ???General Examination: ?GENERAL APPEARANCE:?alert, well hydrated, in no distress.? Assessment: * Assessment: 1.?Viral URI with cough - J0 6.9 (Primary)??? Plan: * Treatment: * Procedure Codes:? * * Sign off status: Completed true * Provider:?Bhavin Marin MD Date:?0 09/03/2024 Generated for Shyam monsalve/Rod/Kaylan on:?11/27/2024 11:16 AM EDT History and Physical Notes * HPI (History of Present Illness) Category Sub-Category Detail Notes Category Not es Symptom(s) Telehealth Location of [facility] rendering services:: [address] [place] [address], [address] neymar is a 69 yo female video telehealth visit, having cough some green phlegm sniffles and running nose. would like a zpack Location of patient:: at address listed in [...]
== END 2024-11-27 10:45 | disposition home or self-care (01) ==
LOC: HO.MAMMO 10:44
PROVIDERS: PCP Internal Medicine; Visit Provider Internal Medicine
DX: Z12.31 Encounter for screening mammogram for malignant neoplasm of breast (principal)
CPT/HCPCS: 77063; 77067

== ENCOUNTER → 2024-11-27 11:00 | Outpatient (BNV) | payer MEDICARE, BC, SELFPAY | PROVIDERS: PCP Internal Medicine; Visit Provider Internal Medicine | DX: Z12.31 Encounter for screening mammogram for malignant neoplasm of breast (principal) | CPT/HCPCS: 77063; 77067 ==

== ENCOUNTER 2025-01-29 07:00 | Outpatient (REF) | payer MEDICARE, BC, SELFPAY ==
[2025-01-29 10:15] LABS: MANUAL DIFF FLAG NO
--- OUTSIDE RECORDS SUMMARY | 2025-01-29 10:32 | XMS_ITS | Encounter Summary ---
Author Organization [facility] Address [address] [place] [address] Phone Care Team Providers Care Valve Liner Rubber Name Role Phone Bhavin Marin MD Unavailable [phone] Bhavin Marin MD Primary Care Provider Encounter Details Date Type Department Care Team (Late st Contact Info) Description 03/17/2021 Ancillary Orders Virtual Department [address] [place] [address] Lori Gabriel, HAND SHAPER [address] [place] [address] Breast screening Social History Tobacco Use Types Packs/Day Years Used Date Smoking Tobacco: Never Assessed Comments No Sex and Gender Information Value Date Recorded Sex Assigned at Not on file Legal Sex Female 9:57 PM EDT Gender Identity Not on file Sexual Orientation Not on file documented as of this encounter Plan of Treatment Not on file documented as of this encounter Visit Diagnoses Diagnosis Breast screening Breast screening, unspecified documented in this encounter Care Teams Valve Liner Rubber Relationship Specialty Start Date End Date Bhavin Marin MD [address] [place] [address] [place] [address] PCP - General Internal Medicine 08/23/17 Bhavin Marin MD [address] [place] [address] Dr Marielos [place] [phone] Historical LMR Provider 04/30/17 2 documented as of this encounter Additional Source Comments The information contained in this document represents components of the legal health record. It is not the complete legal health record.[facility]
--- OUTSIDE RECORDS SUMMARY | 2025-01-29 10:33 | XMS_ITS | Patient Health Record ---
Author Organization Bhavin Marin MD Address [address] [place], [place] [id number] Care Team Providers Care Accounting File Clerk Name Role Phone Bhavin Marin Primary Care Provider [phone] Allergies Allergen (clinical drug ingredient) Drug/Non Drug Allergy documented on EMR Reaction Allergy Type Onset Date Status sulfamethoxazole / trimethoprim Bactrim (uncoded) rash Allergy Active amoxil (uncoded) hives Allergy Act armand aspirin aspirin (uncoded) rash Allergy Ac tive IVP Dye (uncoded) hives Allergy Ac tive Results Component Value Reference Range Notes XR ankle LT min 3V Reviewed date:03/17/2024 01:05:41 PM Interpretation: Performing Lab: Notes/Report: [address] [address] XRay Report Signed Patient: Mirna Shore MR#: [id number] : 1955 Acct:[id number] Age/Sex: 69 / F ADM Date: 03/16/24 Loc: .ED Attending Dr: Ordering Physician: Shirlene East CNP Date of Service: 03/16/24 Procedure(s): XR ankle LT min 3V Accession Number(s): [id number] cc: Shirlene East CNP; Bhavin Marin MD [...] Chan Marie MD 03/16/2024 05:29 PM EDT RP Dictated By: Chan Marie MD Signed By: <Electronically signed by Chan Marie MD in OV> 03/16/24 1729 DD/ 1629 TD/TT: 03/16/24 1709 Storm Chaser: [place] [address] XRay Report Signed Patient: Susanne Shore MR#: [id number] : 1955 Acct:[id number] Age/Sex: 69 / F ADM Date: 03/16/24 Loc: .ED Attending Dr: Ordering Physician: Shirlene East CNP Date of Service: 03/16/24 Procedure(s): XR ank le LT min 3V Accession Number(s): [id number] cc: Shirlene East CNP; Bhavin Marin MD EXAMINATION: XR ANKLE, LEFT CLINICAL INFORMATION: Fall with lateral pa in and swelling COMPARISON: None available. TECHNIQUE: AP, lateral, and mor tise views of the left ankle. FINDINGS: Diffuse soft tissue swelling about the ankle more so laterally. There is a obliquely orien sy slightly displaced fracture through the lateral malleolus which is d isplaced slightly laterally and inferiorly. Otherwise the ankle mortise alignment appears grossly intact. Tibia appears intact. Calc aneal heel spur at the attachment point of the plantar aponeurosis. X R/XR ankle LT min 3V IMPRESSION: Minimally displaced obliquely oriented fracture through the lateral malleolus with assoc iated soft tissue swelling. Electronically nathalie d by: Chan Marie MD 03/16/2024 05:29 PM EDT RP Dictated By: Chan Hedrick MD Signed By: <Electron ically signed by Chan Marie MD in OV> 03/16/24 1729 DD/ 1629 TD/TT: 03/16/24 1709 Storm Chaser: [place] XR DEXA axial skeleton Reviewed date:08/07/2024 01:27:08 PM Interpretation: Performing Lab: Notes/Report: [facility] [address] [place] [address] Mammography Report Signed Patient: Mirna Shore MR#: [id number] : 1955 Acct:[id number] Age/Sex: 69 / F ADM Date: 08/07/24 Loc: HOQuynhMAMMO Attending Dr: Bhavin Marin MD Ordering Physician: Bhavin Marin MD Results: Date of Service: 08/07/24 Follow Up: Procedure(s): XR DEXA axial skeleton Accession Number(s): [id number] cc: Bhavin Marin MD EXAMINATION: DXA BONE DENSITY AXIAL HISTORY: Estrogen deficiency TECHNIQUE: [employer] Dual energy absorptiometry (DEXA) of the lumbar [...] is a trademark of the [employer] [place] [facility] Metabolic Bone Disease, a World Health Organization (WHO) Collaborating Center. Electronically signed by: Jordy Archibald MD 08/07/2024 10:15 AM [facility] Dictated By: Jordy Archibald MD Signed By: <Electronically signed by Jordy Archibald MD in OV> 08/07/24 1015 DD/ 0920 TD/TT: 08/07/24 0941 Storm Chaser: [facility] [address] [place] [address] Mammography Report Signed Patient: Susanne Shore MR#: [id number] : 1955 Acct:[id number] Age/Sex: 69 / F ADM Date: 08/07/24 Loc: BETTIEO Attending Dr: Bhavin Marin MD Ordering Physician: Bhavin Marin MD Results: Date of Service: Follow Up: Procedure(s): XR DEX A axial skeleton Accession Number(s): [id number] cc: Bhavin Marin MD EXAMINATION: DXA BON E DENSITY AXIAL HISTORY: Estrogen deficiency TECHNIQUE: [place] Dual energy absorptiometry (DEXA) of the lumbar spine, total left hip, and femoral neck was performed. COMPARISON: Comparis on is made with the prior examination dated 06/29/2022. FINDINGS: The bone mineral den sity of the lumbar spine is 1.058 with a T-score of -0.9, and a Z-score of 0.3. This represents a BM D change of 7.1% compared to the prior exam. This is statistically significant. The bone mineral den sity of the left total hip is 0.848 with a T-score of -1.3, and a Z-score of -0.3. This represents BMD change of 16.6% compared to the prior exam. This is statistically significant. The bone mineral den sity of the left femoral neck is 0.815 with a T-score of -1.6, and a Z-score of -0.2. This represents BMD change of 23.7% compared to the prior exam. M M/XR DEXA axial skeleton IMPRESSION: Based on bone minera l density, and according to World Health Organization (WHO) [place], the diagnosis is consistent with osteopenia. All bone density jose ues are in grams per centimeter squared (g/cm2). Statistically, 68% o f repeat scans fall within 1 SD (+/- 0.010 g/cm2 for AP spine L1-L4) and 1 SD (+/- 0.012 g/cm2 for femur total) FRAX is a trademark of the [employer] [place] for Metabolic Bone Disease, a World Health Organization (WHO) Collaborating Center. Electronically nathalie d by: Jordy Archibald MD 08/07/2024 10:15 AM [facility] Dictated By: Jordy Archibald MD Signed By: <Nancy miller signed by Jordy Archibald MD in OV> 08/07/24 1015 DD/ 0920 TD/TT: 08/07/24 0941 Storm Chaser: SAL tomosynthesis screening B I Reviewed date:12/08/2024 12:46:41 PM Interpretation: Performing Lab: Notes/Report: [facility] [address] [place], [place] [id number] Mammography Report Signed Patient: Mirna Shore MR#: [id number] : 1955 Acct:[id number] Age/Sex: 69 / F ADM Date: 11/27/24 Loc: MAMMO Attending Dr: Bhavin Marin MD Ordering Physician: Bhavin Marin MD Results: 1Ne gative Date of Service: 11/27/24 Follow Up: 1 Year From Orig ina Mammogram Procedure(s): MM tomosynthesis screening BI Accession Number(s): [id number] cc: Bhavin Marin MD EXAMINATION: MM SCREENING DIGITAL BREAST TOMOSYNTHESIS, BILATERAL CLINICAL INFORMATION: Screening. Asymptomatic. COMPARISON: Mammography: Comparison is made with available priors TECHNIQUE: Digital breast mammography with tomosynthesis is performed in both the craniocaudal and mediolateral oblique views along with computer-aided detection (CAD). FINDINGS: There are scattered areas of fibroglandular density (ACR BI-RADS breast composition Category b). There are no significant masses, abnormal calcifications, or other abnormalities. MM/MM tomosynthesis screening BI IMPRESSION: No mammographic evidence of malignancy. ASSESSMENT: BI-RADS BI-RADS 1 - Negative RECOMMENDATION: Routine annual mammography screening. 1 year F/U This examination should not preclude the clinical evaluation of a suspicious palpable abnormality. This patient's information was entered into a reminder system with a target due date for their next mammogram. Electronically signed by: Brittni Guaman DO 12/05/2024 01:00 PM EDT Dictated By: Brittni Guaman DO Signed By: <Electronically signed by Brittni Guaman DO in OV> 12/05/24 1300 DD/ 1100 TD/TT: 11/27/24 1115 Storm Chaser: [facility] [address] [place] [address] Mammography Report Signed Patient: Susanne Shore MR#: [id number] : 1955 Acct:[id number] Age/Sex: 69 / F ADM Date: 11/27/24 Loc: MAMMO Attending Dr: Bhavin Marin MD Ordering Physician: Bhavin Marin MD Results: 1Ne gative Date of Service: Follow Up: 1 Year From Orig inal Mammogram Procedure(s): MM oleksandr osynthesis screening BI Accession Number(s): [id number] cc: Bhavin Marin MD EXAMINATION: MM SCREENING DIGITAL BREAST TOMOSYNTHESIS, BILATERAL CLINICAL INFORMATION: Screening. Asymptomatic. COMPARISON: Mammography: Compari son is made with available priors TECHNIQUE: Digital breast mammo graphy with tomosynthesis is performed in both the craniocaudal and med iolateral oblique views along with computer-aided detection (CAD). FINDINGS: There are scattered areas of fibroglandular density (ACR BI-RADS breast composition Category b). There are no signifi cant masses, abnormal calcifications, or other abnormalities. M M/MM tomosynthesis screening BI IMPRESSION: No mammographic evid ence of malignancy. ASSESSMENT: BI-RADS BI-RADS 1 - Negative RECOMMENDATION: Routine annual mammo graphy screening. 1 year F/U This examination angie uld not preclude the clinical evaluation of a suspicious palpable abnormality. This patient's infor mation was entered into a reminder system with a target due date for their next mammogram. Electronically nathalie d by: Brittni Guaman DO 12/05/2024 01:00 PM EDT RP Dictated By: Brittni Brewer i, DO Signed By: <Nancy miller signed by Brittni Guaman DO in OV> 12/05/24 1300 DD/ 1100 TD/TT: 11/27/24 1115 Storm Chaser: Reason For Referral Reason pain in left knee Diagnosis 1 Pain in left knee (M 25.562) Referral Organization Bhavin Marin MD Referring Provider First Name Bhavin Referring Provider Last Name Tania Referring Provider Speciality Internal M edicine Referred Provider AKASH HOLLINGSWORTH Referred Provider Specialty Orthopedic S urgery General Notes Nayely Kessler 02/17/2024 10:10:16 AM [...] First Name Bhavin Referring Provider Last Name Tnaia Referring Provider Speciality Internal M edicine Referred Provider Blair Kraft Referred Provider Specialty Gastroentero logy General Notes Nayely Kessler 02/17/2024 10:03:47 AM EDT > REFERRAL FAXED 02/17/24, Nayely Kessler 02/20/2024 10:12:00 AM EDT > REFERRAL NOT RECD [facility] , REFAX TODAY, Nayely Kessler 02/20/2024 10:52:38 AM EDT > PV GASTRON [...] DAY IN THE MORNING FOR 90 DAYS for 90 Active Propranolol HCl ER 60 MG TAKE 1 CAPSULE BY MOUTH EVERY DAY for 90 Active Immunizations Vaccine Route Administration Date Status Comme nts Flu Vaccine Unknown 06/19/2012 Administered Flu Vaccine Unknown 05/03/2013 Administered given at [facility] school Fluarix Quadrivalent IM Intramuscular 04/18/2015 Administe red pt received the vaccine in [facility] in [place]. Flu Vaccine ID Intradermal 04/21/2016 Administered [facility] Flu Vaccine IM Intramuscular 04/19/2017 Administered pt wa s given the vaccine at [facility] in [place]. PPSV23 (Pnemovax) IM Intramuscular 12/10/2017 Administered Prevnar 13 IM Intramuscular 12/30/2018 Administered Influenza High Dose IM Intramuscular 04/14/2019 Administer ed pt was given the vaccine at [facility] in [place]. Influenza High Dose Unknown 04/12/2020 Administered [facility] SARS-COV-2 Pfizer Unknown 09/13/2020 Administered SARS-COV-2 Pfizer [...] Problem Status W/U Status Risk Notes Problem 50165881 Age-related osteoporosis without current pathological fracture (M81.0) Active confirmed Problem 083840242 Neutropenia (D70.9) Active confirmed Problem 71414524 Lymphocytosis (D72.820) Active confirmed Problem 82791849 Depression (F32.9) Active confirmed Problem Neutropenia (144867923) Neutropenia, unspecified (D70.9) Active confirmed Problem 036458580 Essential tremor (G25.0) Active confirmed Problem Essential hypertension (27952432) Essential (primary) hypertension (I10) Active confirmed Problem Unspecified jo ann pausal and perimenopausal disorder (N95.9) Active confirmed Problem 40863603 Essential hypert ension (I10) Active confirmed Problem 931640778 Pure hypercholesterolemia (E78.00) Active confirmed Problem 518494248 Osteopenia, unspecified location (M85.80) Active confirmed Problem Hypercalciuria (25991250) Hypercalciuria (E83.50) Active confirmed Vital Signs Blood pressure diastolic 64 mm Hg 08/07/2024 lynette ght is down 4 pounds since 02-03-24 Height 68 in 09/03/2024 weight is 180 a t home BP not taken no temp Blood pressure systolic 98 mm Hg 08/07/2024 weig ht is down 4 pounds since 02-03-24 Weight 189 lbs 08/07/2024 weight is down 4 pounds since 02-03-24 BMI 28.73 kg/m2 08/07/2024 weight is down 4 pounds since 02-03-24 Encounters Encounter Location Date Provider Diagnosis Bhavin Marin MD [address] [place] [id number] 01/29/2025 Bhavin Marin Essential hypertensi on I10 ; Neutropenia D70.9 and Pure hypercholesterolemia E78.00 Bhavin Marin MD [address] [place] [address] [id number] 02/03/2024 Bhavin Marin Pain in left knee M2 5.562 ; Pain in right knee M25.561 ; Age-related osteoporosis without current pathological fracture M81.0 and Essential hypertension I10 Bhavin Marin MD [address] [place] [address] [id number] 06/09/2024 Bhavin Marin Acute bronchitis, unspecified organism J20.9 Bhavin Marin MD [address] [place] [address] [id number] 08/07/2024 Bhavin Marin Risk for falls Z91.8 1 ; Anxiety, generalized F41.1 and Essential hypertension I10 Bhavin Marin MD [address] [place] [address] [id number] 09/03/2024 Bhavin Marin Viral URI with cough J06.9 Bhavin Marin MD [address] [place] [address] [id number] 03/19/2024 Bhavin Marin MD [address] [place] [address] [id number] 06/30/2024 Bhavin Marin Assessments Encounter Date Diagnosis (ICD Code) Assessment Notes Treatment Notes Treatment Clinical Notes Section Notes 01/29/2025 Essential hypertensi on (ICD-10 - I10) 02/03/2024 Pain in left knee (ICD-10 - M25.562) referral to [facility] 02/03/2024 Pain in right knee (ICD-10 - [...] covid and rsv which she choses not 01/29/2025 Neutropenia (ICD-10 - D70.9) 02/03/2024 Age-related osteoporosis without current pathological fracture (ICD-10 - M81.0) order printed and put in future folder 08/07/2024 Essential hypertensi on (ICD-10 - I10) stable, will continue current regiment 01/29/2025 Pure hypercholesterolemia (ICD-10 - E78.00) 02/03/2024 Essential hypertensi on (ICD-10 - I10) 02/03/[address] kraft advised to get shingles vaccine Plan Of Treatment Pending Test Test Name Order Date Electrocardiogram (EKG) 11/24/2015 Electrocardiogram (EKG) 12/06/2016 Electrocardiogram (EKG) 12/19/2017 MAMMOGRAM DIGITAL BILATERAL SCREEN 03/31 MAMMOGRAM DIGITAL BILATERAL SCREEN 10/14 COLOGUARD 01/19/2020 COLOGUARD 01/19/2019 Complete Blood Count Auto Diff 5 Comprehensive [place]. Panel Fast 5 Lipid Panel 01/29/2025 UA ClnCatch+Micro w/rflx Cult 01/29/2025 BONE DENSITY DEXA 01/25/2022 Future Test Test Name Order Date BONE DENSITY DEXA 08/05/2024 Next Appt Details Provider Name:Bhavinclarence Quinones ier, 03/12/2025 11:00:00 AM, [address] [place] [address], [address], [place], [place], [id number], Insurance Providers Payer Name Payer Address Payer Phone Subscriber Number Group Number Insured Name Patient Relationship to Insured Coverage Start Date Coverage End Date MEDICARE NHIC [place] [place] [address] [id number] Mirna Shore Self - patient is the insured [employer] [address] [place], [place] [phone] [id number] Mirna Shore Self - patient is the insured Medical (General) History Medical History History ICD Code colonoscopy 07/12/10 - repeat in 10 year s; negative Cologuard 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 Adam gómez mammo at [facility], [place] going to get colonoscopy 2022 advised to get shingles vaccine 2023
[2025-01-29 10:39] LABS: Hematocrit 44.8 % (37.0-47.0); Hemoglobin 14.8 g/dl (12.0-16.0); Imm Gran Abs Auto 0.02 X10*3/uL (0.00-0.03); Imm Gran Pct Auto 0.3 % (0.0-0.4); Lymphocytes Absolute Auto 2.7 X10*3/uL (1.2-4.9); Mean Corpuscular HGB Conc 33.0 g/dl (31.0-35.0); Mean Corpuscular Hemoglobin 28.5 pg (27.0-33.0); Mean Corpuscular Volume 86.2 fL (80.0-98.0); NRBC Abs Auto 0.000 X10*3/uL (0.0-0.012); NRBC Pct Auto 0.0 /100WBC (0.0-0.2); Platelet Count 239 X10*3/uL (160-400); Red Blood Count 5.20 X10*6/uL (4.20-5.50); White Blood Count 6.6 X10*3/uL (4.8-10.8)
[2025-01-29 11:03] LABS: Appearance Urine Clear; Glucose Urine UA Negative (Negative); PH 6.0 (5.0-9.0); Specific Gravity - Urine 1.015 (1.005-1.025); UMIC TRIGGER UACC YES
[2025-01-29 11:08] LABS: Alanine Aminotransferase 20 U/L (0-31); Albumin Level 4.0 g/dL (3.5-5.0); Alkaline Phosphatase 83 U/L (39-117); Anion Gap 10 (12-20); Aspartate Amino Transferase 25 U/L (5-31); Blood Urea Nitrogen 17 mg/dL (9-16); Calcium 9.3 mg/dL (8.4-10.2); Carbon Dioxide 30 mmol/L (22-29); Chloride 105 mmol/L (96-108); Cholesterol 218 mg/dL (<200); Estimated Glomerular Filt Rate > 60; HDL Cholesterol 54 mg/dL (>40); Potassium 3.2 mmol/L (3.3-5.1); Sodium 142 mmol/L (135-145); Total Protein 7.0 g/dL (6.5-8.0); Triglycerides 125 mg/dL (<150)
== END 2025-01-29 07:01 | disposition home or self-care (01) ==
LOC: HO.LNP 07:00
PROVIDERS: Visit Provider Internal Medicine
DX: I10 Essential (primary) hypertension (principal); E78.00 Pure hypercholesterolemia, unspecified; D70.9 Neutropenia, unspecified
CPT/HCPCS: 80053; 80061; 81001; 85025

== ENCOUNTER 2025-03-29 12:36 | Outpatient (REF) | payer MEDICARE, BC, SELFPAY ==
--- OUTSIDE RECORDS SUMMARY | 2024-08-07 06:00 | XMS_ITS ---
Author Organization Bhavin Marin MD Address [address] [place] [phone] Care Team Providers Care Communication Engineer Name Role Phone Bhavin Marin Primary Care Provider [phone] Allergies Allergen (clinical drug ingredient) Drug/Non Drug Allergy documented on EMR Reaction Allergy Type Onset Date Status sulfamethoxazole / trimethoprim Bactrim (uncoded) rash Allergy Active amoxil (uncoded) hives Allergy Act armand aspirin aspirin (uncoded) rash Allergy Ac tive IVP Dye (uncoded) hives Allergy Ac tive REASON FOR VISIT 6 month Medications Medication SIG (Take, Route, Frequency, Duration) Notes Start Date End Date Status Tylenol Extra Strength 500 MG 1 tablet a s needed Orally every 6 hrs Not-Taking hydroCHLOROthiazide 25 MG TAKE 1 TABLET BY MOUTH EVERY DAY IN THE MORNING FOR 90 DAYS Active PARoxetine HCl 10 MG 1 tablet in the morning Orally Once a day for 30 days 08/07/2024 Active Propranolol HCl ER 60 MG TAKE 1 CAPSULE BY MOUTH EVERY DAY for 90 Active PARoxetine HCl 20 MG TAKE 1 TABLET BY MOUTH EVERY DAY IN THE MORNING for 90 Active Vitamin D (Cholecalciferol) 1000 UNIT 1 tablet Orally Once a day 11/25/2015 Active Vital Signs Blood pressure systolic 98 mm Hg 08/07/19 25 Blood pressure diastolic 64 mm Hg 025 Height 68 in 08/07/2024 Weight 189 lbs 08/07/2024 BMI 28.73 kg/m2 08/07/2024 weight is down 4 pounds [facility] e 02-03-24 Encounters Encounter Location Date Provider Diagnosis Bhavin Marin MD [address] [place] [address] [place] [phone] 08/07/2024 Bhavin Marin Risk for falls Z91.8 1 ; Anxiety, generalized F41.1 and Essential hypertension I10 Assessments Encounter Date Diagnosis (ICD Code) Assessment Notes Treatment Notes Treatment Clinical Notes Section Notes 08/07/2024 Risk for falls (ICD-10 - Z91.81) will try tapering the paxil and have her do exercise to strength 08/07/2024 Anxiety, generalized (ICD-10 - F41.1) is going to try decreasing paxil and see if that may be a cause of her falling. only 4 falls in 11 years so difficult to know if it is cause 08/07/2024 Essential hypertension (ICD-10 - I10) stable, will continue current regiment Plan Of Treatment Medication Medication Name Sig Start Date Stop Date Notes hydroCHLOROthiazide 25 MG TAKE 1 TABLET BY MOUTH EVERY DAY IN THE MORNING FOR 90 DAYS PARoxetine HCl 10 MG 1 tablet in the mor dylan Orally Once a day for 30 days 08/07/2024 Treatment Notes Assessment Notes Risk for falls will try tapering th e paxil and have her do exercise to strength Anxiety, generalized is going to try dec reasing paxil and see if that may be a cause of her falling. only 4 falls in 11 years so difficult to know if it is cause Essential hypertension stable, will cont inue current regiment Next Appt Details Provider Name:Bhavin martínez, 09/20/2025 10:15:00 AM, [address] [place] [address], Suite [facility], [place], [place], [phone], Provider Name:Bhavin martínez, 03/24/2026 08:00:00 AM, [address] [place] [address], [place] [address], [place], [place], [phone], Provider Name:Bhavin martínez, 03/31/2026 09:30:00 AM, [address] [place] [address], [place] [address], [place], [place], [phone], Progress Notes * Mirna DUMONT CDOB: 4 (69 yo F)Acc No.[id number]:08/07/2024 Progress Notes Patient: Mirna HERNÁNDEZ Provider: Edilberto Marin MD :1955 A ge:69 Y S ex:Female Date:08/07/2024 Address:[address] [place] [address] [facility] [id number] Subjective: * Chief Complaints: * 6 month * HPI: S ymptom(s): patient is a 69 yo female here for 6 month follow up. had surgery on her ankle and is finally getting. better. * ROS: G eneral/Constitutional: Denies C hills. D enies F atigue. D enies F ever. D enies H eadache. E NT: Patient denies d ecreased sense of smell, any loss of taste, sore throat. D enies S ore throat. R espiratory: Denies C ough. D enies S hortness of breath at rest. D enies S hortness of breath with exertion. G astrointestinal: Denies D iarrhea. D enies N ausea. M usculoskeletal: Patient denies m uscle aches. P eripheral Vascular: Patient denies r ed and blue toes. * Medical History: * Surgical History: * Hospitalization/Major Diagno stic Procedure: * Medications: T akingVitamin D (Cholecalciferol) 1000 UNIT Tablet 1 tablet Orally Once a day Propranolol HCl ER 60 MG Capsule Extended Release 24 Hour TAKE 1 CAPSULE BY MOUTH EVERY DAY hydroCHLOROthiazide 25 MG Tablet TAKE 1 TABLET BY MOUTH EVERY DAY IN THE MORNING FOR 90 DAYS PARoxetine HCl 20 MG Tablet TAKE 1 TABLET BY MOUTH EVERY DAY IN THE MORNING Taking Vitamin D (Cholecalciferol) 1000 UNIT Tablet 1 tablet Orally Once a day Taking Propranolol HCl ER 60 MG Capsule Extended Release 24 Hour TAKE 1 CAPSULE BY MOUTH EVERY DAY Taking hydroCHLOROthiazide 25 MG Tablet TAKE 1 TABLET BY MOUTH EVERY DAY IN THE MORNING FOR 90 DAYS Taking PARoxetine HCl 20 MG Tablet TAKE 1 TABLET BY MOUTH EVERY DAY IN THE MORNING Not-Taking/PRNTylenol Extra Strength 500 MG Tablet 1 tablet as needed Orally every 6 hrs Medication List reviewed and reconciled with the patientNot-Taking/PRN Tylenol Extra Strength 500 MG Tablet 1 tablet as needed Orally every 6 hrs Medication List reviewed and reconciled with the patient * Allergies: I CHRONOMETER ADJUSTER Dye: hivesaspirin: rashamoxil: hivesBactrim: rashyes[Allergies Verified] Objective: * Vitals: H t: 68, Wt: 189, BMI:28.73, BP:98/64, Wt-k.73. weight is down 4 pounds since 02-03-24. * Examination: G eneral Examination: GENERAL APPEARANCE: a lert, well hydrated, in no distress.? HEAD: n ormocephalic. SKIN: , good turgor. HEART: r egular rate and rhythm, no murmurs, rubs, gallops.? LUNGS: n o wheezes, rales, rhonchi, good air movement. Assessment: * Assessment: 1. R isk for falls - Z91.81 (Primary) 2 . A nxiety, generalized - F41.1? 3. E ssential hypertension - I10 Plan: * Treatment: 2. A nxiety, generalized Notes: is going to try decreasing paxil and see if that may be a cause of her falling. only 4 falls in 11 years so difficult to know if it is cause 3. E ssential hypertension Continue hydroCHLOROthiazide Tablet, 25 MG, TAKE 1 TABLET BY MOUTH EVERY DAY IN THE MORNING FOR 90 DAYS. Notes: stable, will continue current regiment * Procedure Codes: * * Sign off status: Completed true * Provider: Edilberto Marin MD Date: 0 08/07/2024 Generated for Shyam monsalve/Rod/Williamsmitting on: 0 03/29/2025 05:25 PM EDT History and Physical Notes * HPI (History of Present Illness) Category Sub-Category Detail Notes Category Not es Symptom(s) patient is a 69 yo female here for 6 month follow up. had surgery on her ankle and is finally getting. better. Examination Category Sub-Category Detail Notes Category Not es General Examination GENERAL APPEARANCE: alert, w ell hydrated, in no distress HEAD: normocephalic HEART: regular rate and rhy thm, no murmurs, rubs, gallops LUNGS: no wheezes, rales, r honchi, good air movement SKIN: , good turgor
--- OUTSIDE RECORDS SUMMARY | 2024-09-03 10:00 | XMS_ITS ---
Author Organization Bhavin Marin MD Address [address] [place] [phone] Care Team Providers Care Final Inspector Truck Trailer Name Role Phone Bhavin Marin Primary Care Provider Allergies Allergen (clinical drug ingredient) Drug/Non Drug Allergy documented on EMR Reaction Allergy Type Onset Date Status sulfamethoxazole / trimethoprim Bactrim (uncoded) rash Allergy Active amoxil (uncoded) hives Allergy Act armand aspirin aspirin (uncoded) rash Allergy Ac tive IVP Dye (uncoded) hives Allergy Ac tive REASON FOR VISIT c/o chills, achy headache, started with a sore throat 3 days ago, runny nose congestion x 4 days Did not test for Covid, Video [phone] Medications Medication SIG (Take, Route, Frequency, Duration) Notes Start Date End Date Status Vitamin D (Cholecalciferol) 1000 UNIT 1 tablet Orally Once a day 11/25/2015 Active PARoxetine HCl 10 MG 1 tablet in the morning Orally Once a day for 30 days 08/07/2024 Active PARoxetine HCl 20 MG TAKE 1 TABLET BY MOUTH EVERY DAY IN THE MORNING for 90 Active Tylenol Extra Strength 500 MG 1 tablet a s needed Orally every 6 hrs Not-Taking hydroCHLOROthiazide 25 MG TAKE 1 TABLET BY MOUTH EVERY DAY IN THE MORNING FOR 90 DAYS Active Propranolol HCl ER 60 MG TAKE 1 CAPSULE BY MOUTH EVERY DAY for 90 Active Vital Signs Height 68 in 09/03/2024 weight is 180 at home BP not taken no temp Encounters Encounter Location Date Provider Diagnosis Bhavin Marin MD [address] [place] [phone] 09/03/2024 Bhavin Marin Viral URI with cough J06.9 Assessments Encounter Date Diagnosis (ICD Code) Assessment Notes Treatment Notes Treatment Clinical Notes Section Notes 09/03/2024 Viral URI with cough (ICD-10 - J06.9) expolained that a zpack won't help as it is moat certainly a virus since everyone in her family has it. advised to get a swab for flu and covid and rsv which she choses not Plan Of Treatment Treatment Notes Assessment Notes Viral URI with cough expolained that a z pack won't help as it is moat certainly a virus since everyone in her family has it. advised to get a swab for flu and covid and rsv which she choses not Next Appt Details Provider Name:Bhavin martínez, 09/20/2025 10:15:00 AM, [address] [place] [address], [phone], Provider Name:Bhavin martínez, 03/24/2026 08:00:00 AM, [address] [place] [address], [phone], Provider Name:Bhavin martínez, 03/31/2026 09:30:00 AM, [address] [place] [address], [phone], Progress Notes * Mirna DUMONT CDOB: 4 (69 yo F)Acc No.[id number]:09/03/2024 Patient: Mirna HERNÁNDEZ Provider: Edilberto Marin MD :1955 A ge:69 Y S ex:Female Date:09/03/2024 Address:[address] [place] [address] [id number] Subjective: * Chief Complaints: * c /o chills, achy headache, started with a sore throat 3 days ago, runny nose congestion x 4 days Did not test for CovidVideo [phone] * HPI: S ymptom(s): Telehealth L ocation of provider rendering services: [address], [address], L ocation of patient: a t address listed in demographics for today's visit, P atarlene identification confirmed using: BENSON Gregory ame, T elehealth method: V ideo conference where patient is visible to the provider of care, C onsent: P atient verbally consented to treatment, Patient verbally consented to billing insurance company, Patient informed of any privacy concerns related to method of visit, T otal time spend talking with patient (minutes) 1 6. neymar is a 69 yo female video telehealth visit, h aving cough some green phlegm sniffles and running nose. would like a zpack. * ROS: G eneral/Constitutional: Admits C hills. D enies F atigue. D enies F ever. D enies H eadache. E NT: Patient denies d ecreased sense of smell, any loss of taste. A dmits S ore throat. R espiratory: Admits C ough. D enies S hortness of breath at rest. D enies S hortness of breath with exertion. A dmits S putum production. M usculoskeletal: Patient denies m uscle aches. P eripheral Vascular: Patient denies r ed and blue toes. * Medical History: * Surgical History: * Hospitalization/Major Diagno stic Procedure: * Medications: T akingVitamin D (Cholecalciferol) 1000 UNIT Tablet 1 tablet Orally Once a day Propranolol HCl ER 60 MG Capsule Extended Release 24 Hour TAKE 1 CAPSULE BY MOUTH EVERY DAY PARoxetine HCl 20 MG Tablet TAKE 1 TABLET BY MOUTH EVERY DAY IN THE MORNING PARoxetine HCl 10 MG Tablet 1 tablet in the morning Orally Once a day hydroCHLOROthiazide 25 MG Tablet TAKE 1 TABLET BY MOUTH EVERY DAY IN THE MORNING FOR 90 DAYS Taking Vitamin D (Cholecalciferol) 1000 UNIT Tablet 1 tablet Orally Once a day Taking Propranolol HCl ER 60 MG Capsule Extended Release 24 Hour TAKE 1 CAPSULE BY MOUTH EVERY DAY Taking PARoxetine HCl 20 MG Tablet TAKE 1 TABLET BY MOUTH EVERY DAY IN THE MORNING Taking PARoxetine HCl 10 MG Tablet 1 tablet in the morning Orally Once a day Taking hydroCHLOROthiazide 25 MG Tablet TAKE 1 TABLET BY MOUTH EVERY DAY IN THE MORNING FOR 90 DAYS Not-Taking/PRNTylenol Extra Strength 500 MG Tablet 1 tablet as needed Orally every 6 hrs Medication List reviewed and reconciled with the patientNot-Taking/PRN Tylenol Extra Strength 500 MG Tablet 1 tablet as needed Orally every 6 hrs Medication List reviewed and reconciled with the patient * Allergies: I SOD CUTTER Dye: hivesaspirin: rashamoxil: hivesBactrim: rashyes[Allergies Verified] Objective: * Vitals: H t: 68. weight is 180 at home BP not taken no temp. * Examination: G eneral Examination: GENERAL APPEARANCE: a lert, well hydrated, in no distress.? Assessment: * Assessment: 1. V iral URI with cough - J06.9 (Primary) Plan: * Treatment: * Procedure Codes: * * Sign off status: Completed true * Provider: Edilberto Marin MD Date: 0 09/03/2024 Generated for Vickyi ng/Rod/eTransmitting on: 0 03/29/2025 05:25 PM EDT History and Physical Notes * HPI (History of Present Illness) Category Sub-Category Detail Notes Category Not es Symptom(s) Telehealth Location of [facility] rendering services:: [address] [facility], [address] neymar is a 69 yo female video telehealth visit, having cough some green phlegm sniffles and running nose. would like a [facility] Location of patient:: at address listed in demographics for today's visit Patient identification confirmed using:: Name, Telehealth method:: Video co nference where patient is visible to the provider of care Consent:: Patient verbally c onsented to treatment, Patient verbally consented to billing insurance company, Patient informed of any privacy concerns related to method of visit Total time spend talking with patient (m inutes): 16 Examination Category Sub-Category Detail Notes Category Not es General Examination GENERAL APPEARANCE: alert, w ell hydrated, in no distress
--- OUTSIDE RECORDS SUMMARY | 2025-01-29 03:00 | XMS_ITS ---
Author Organization Bhavin Marin MD Address [address] [place] [phone] Care Team Providers Care Electric Relay Tester Name Role Phone Bhavin Marin Primary Care Provider [phone] Results Component Value Reference Range Notes Complete Blood Count Auto Di ff Reviewed date:01/29/2025 04:06:06 PM Interpretation: Performing Lab:[facility], [address] [place] [phone] Notes/Report: White Blood Count 6.6 4.8-10.8 X10*3/uL Red Blood Count 5.20 4.20-5.50 X10*6/uL Hemoglobin 14.8 12.0-16.0 g/dl Hematocrit 44.8 37.0-47.0 % Mean Corpuscular Volume 86.2 80.0-98.0 fL Mean Corpuscular Hemoglobin 28.5 27.0-33.0 pg Mean Corpuscular HGB Conc 33.0 31.0-35.0 g/dl Red Cell Distribution Width 13.3 11.0-16.0 % Platelet Count 239 160-400 X10*3/uL Mean Platelet Volume 11.4 9.4-12.3 fL Neutrophils Percent Auto 44.7 45-73 % Imm Gran Pct Auto 0.3 0.0-0.4 % Lymphocytes Percent Auto 40.3 20-40 % Monocytes Percent Auto 12.3 2-11 % Eosinophils Percent Auto 1.8 0-4 % Basophils Percent Auto 0.6 0-2 % NRBC Pct Auto 0.0 0.0-0.2 /100WBC Neutrophils Absolute Auto 3.0 2.0-8.3 x10*3/u L Imm Gran Abs Auto 0.02 0.00-0.03 X10*3/uL Lymphocytes Absolute Auto 2.7 1.2-4.9 X10*3/u L Monocytes Absolute Auto 0.8 0.1-1.2 X10*3/uL Eosinophils Absolute Auto 0.1 0.0-0.4 X10*3/u L Basophils Absolute Auto 0.0 0.0-0.2 X10*3/uL NRBC Abs Auto 0.000 0.0-0.012 X10*3/uL Comprehensive [place]. Panel Fa st Reviewed date:01/29/2025 04:16:08 PM Interpretation: Performing Lab:[address] [phone] Notes/Report: Sodium 142 135-145 mmol/L Potassium 3.2 3.3-5.1 mmol/L Chloride 105 96-108 mmol/L Carbon Dioxide 30 22-29 mmol/L Anion Gap 10 12-20 Blood Urea Nitrogen 17 9-16 mg/dL Creatinine 0.79 0.5-1.4 mg/dL Estimated Glomerular Filt Rate > 60 Chronic Kidney Disease: Estimated GFR < 60 mL/min/1.73m2 Severe Kidney Disease: Estimated GFR < 15 mL/min/1.73m2 Glucose Fasting 94 60-99 mg/dL Calcium 9.3 8.4-10.2 mg/dL Bilirubin Total 0.5 0.0-1.0 mg/dL Aspartate Amino Transferase 25 5-31 U/L Alanine Aminotransferase 20 0-31 U/L Total Protein 7.0 6.5-8.0 g/dL Albumin Level 4.0 3.5-5.0 g/dL Alkaline Phosphatase 83 39-117 U/L Lipid Panel Reviewed date:01/29/2025 03:06:53 PM Interpretation: Performing Lab:[address] [phone] Notes/Report: Triglycerides 125 <150 mg/dL Desirable Triglyceride: less than 150 mg/dL Borderline High Triglyceride 150-199 mg/dL High Triglyceride: 200-499 mg/dL Very High Triglyceride: greater than or equal to 5OO mg/dL Cholesterol 218 <200 mg/dL Desirable Cholesterol: less than 200 mg/dL Borderline High Cholesterol: 200-239 mg/dL High Cholesterol: greater than 239 mg/dL LDL Cholesterol Calculated 139 <100 mg/dL Desirable LDL: less than 100 mg/dL Near Optimal/Above Optimal LDL: 110-129 mg/dL Borderline High LDL: 130-159 mg/dL High LDL: 160-189 mg/dL Very High LDL: greater than or equal to 190 mg/dL HDL Cholesterol 54 >40 mg/dL Desirable HDL: greater than 40 mg/dL Note: This HDL assay may give artificially low results in patients with liver disease. UA ClnCatch+Micro w/rflx Cul t Reviewed date:01/29/2025 04:17:10 PM Interpretation: Performing Lab:[facility], [address] [place] [phone] Notes/Report: Urine, Clean Catch Color Urine Yellow Appearance Urine Clear PH 6.0 5.0-9.0 Glucose Urine UA Negative Negative mg/dL Urine Blood Negative Negative Specific [place] - Urine 1.015 1.005-1.025 Urine Protein Negative Neg-Trace mg/dL Urine Ketones Negative Negative mg/dL Nitrite Urine Negative Negative Leukocyte Esterase Urine Trace Negative RBC Urine 0-2 0-2 /HPF WBC Urine 0-5 0-5 /HPF Squamous Epithelial Cell Urine 0-2 0-2 /HPF Bacteria Urine None Seen None Seen Hyaline Casts Urine 0-2 0-2 /LPF REASON FOR VISIT early fasting labs Encounters Encounter Location Date Provider Diagnosis Bhavin Marin MD [address] [place], [place] [phone] 01/29/2025 Bhavin Marin Essential hypertensi on I10 ; Neutropenia D70.9 and Pure hypercholesterolemia E78.00 Assessments Encounter Date Diagnosis (ICD Code) Assessment Notes Treatment Notes Treatment Clinical Notes Section Notes 01/29/2025 Essential hypertensi on (ICD-10 - I10) 01/29/2025 Neutropenia (ICD-10 - D70.9) 01/29/2025 Pure hypercholesterolemia (ICD-10 - E78.00) Plan Of Treatment Next Appt Details Provider Name:Bhavin Quinones ier, 09/20/2025 10:15:00 AM, [address], [address], [place], [phone], Provider Name:Bhavin Quinones ier, 03/24/2026 08:00:00 AM, [address], [address], [place], [place], [phone], Provider Name:Bhavin Quinones ier, 03/31/2026 09:30:00 AM, [address], [address], [place], [place], [phone], Progress Notes * TIMMirna Gregory CDOB: (70 yo F)Acc No.[id number]:01/29/2025 Progress Note Patient: Mirna HERNÁNDEZ Provider: Edilberto Marin MD :1955 A ge:69 Y S ex:Female Date:01/29/2025 Address:[address] [place] [id number] Subjective: * Chief Complaints: * 1 . Early fasting labs. * Medical History: Objective: * Vitals: Assessment: * Assessment: 1. E ssential hypertension - I10 (Primary) 2 . N eutropenia - D70.9 ? 3 . P ure hypercholesterolemia - E78.00 Plan: * Treatment: 2. N eutropenia L AB: Complete Blood Count Auto Diff (Collection Date & Time - 01/29/2025 07:00 AM) L AB: Comprehensive [place]. Panel Fast (Collection Date & Time - 01/29/2025 07:00 AM) L AB: Lipid Panel (Collection Date & Time - 01/29/2025 07:00 AM) L AB: UA ClnCatch+Micro w/rflx Cult (Collection Date & Time - 01/29/2025 07:00 AM) 3. P ure hypercholesterolemia L AB: Complete Blood Count Auto Diff (Collection Date & Time - 01/29/2025 07:00 AM) L AB: Comprehensive [place]. Panel Fast (Collection Date & Time - 01/29/2025 07:00 AM) L AB: Lipid Panel (Collection Date & Time - 01/29/2025 07:00 AM) L AB: UA ClnCatch+Micro w/rflx Cult (Collection Date & Time - 01/29/2025 07:00 AM) * Procedure Codes: 3 6415 VENIPUNCT, ROUTINE* * * The named appointment provid er may or may not be the originator of this progress note, and it is not deemed complete until electronically signed by the appointment provider. Sign off status: Pending * Provider: Edilberto Marin MD Date: 0 01/29/2025 Generated for Shyam monsalve/Rod/Edgaritting on: 0 03/29/2025 05:25 PM EDT
--- OUTSIDE RECORDS SUMMARY | 2025-01-29 08:58 | XMS_ITS ---
Author Organization Bhavin Marin MD Address [address] [place] [phone] Care Team Providers Care Radiation Oncology Nurse Name Role Phone Bhavin Marin Primary Care Provider [phone] Medications Medication SIG (Take, Route, Fr equency, Duration) Notes Start Date End Date Status Klor-Con 10 10 MEQ 1 tablet with food O rally once a day for 30 days 01/29/2025 Active Encounters Encounter Location Date Provider Diagnosis Bhavin Marin MD [address] [facility] [address] [place] [phone] 01/29/2025 Bhavin Marin Plan Of Treatment Medication Medication Name Sig Start Date Stop Date Notes Klor-Con 10 10 MEQ 1 tablet with food O rally once a day for 30 days 01/29/2025 Next Appt Details Provider Name:Bhavin martínez, 09/20/2025 10:15:00 AM, [address] [place] [address], [address], [phone], Provider Name:Bhavin martínez, 03/24/2026 08:00:00 AM, [address] [place] [address], [address], [phone], Provider Name:Bhavin martínez, 03/31/2026 09:30:00 AM, [address], [address], [place], [place], [phone], Progress Notes * TIM Mirna CDOB: (69 yo F)Acc No.[id number]:01/29/2025 Patient: Mirna HERNÁNDEZ :1955 A ge:69 Y S ex:Female Address: [address] [place] * Refills Start Klor-Con 10 Tablet Extended Release, 10 MEQ, Orally, 30 Tablet, 1 tablet with food, once a day, 30 days, Refills=11 * true * Date: Generated for Shyam monsalve/Rod/Edgaritting on: 0 03/29/2025 05:25 PM EDT
--- OUTSIDE RECORDS SUMMARY | 2025-03-29 06:30 | XMS_ITS ---
Author Organization Bhavin Marin MD Address [address] [place] [phone] Care Team Providers Care Director Vaccine Name Role Phone Bhavin Marin Primary Care Provider Allergies Allergen (clinical drug ingredient) Drug/Non Drug Allergy documented on EMR Reaction Allergy Type Onset Date Status sulfamethoxazole / trimethoprim Bactrim (uncoded) rash Allergy Active amoxil (uncoded) hives Allergy Act armand aspirin aspirin (uncoded) rash Allergy Ac tive IVP Dye (uncoded) hives Allergy Ac tive Results Component Value Reference Range Notes Potassium Reviewed date:03/29/2025 01:42:19 PM Interpretation: Performing Lab:[facility], [address] [place] [phone] Notes/Report: Potassium 3.6 3.3-5.1 mmol/L REASON FOR VISIT comp visit Medications Medication SIG (Take, Route, Frequency, Duration) Notes Start Date End Date Status Klor-Con 10 10 MEQ 1 tablet with food Orally once a day for 30 days 01/29/2025 Active Tylenol Extra Strength 500 MG 1 tablet a s needed Orally every 6 hrs Not-Taking PARoxetine HCl 10 MG TAKE 1 TABLET BY MOUTH EVERY DAY IN THE MORNING FOR 30 DAYS for 90 Active Vitamin D (Cholecalciferol) 1000 UNIT 1 tablet Orally Once a day 11/25/2015 Active Propranolol HCl ER 60 MG TAKE 1 CAPSULE BY MOUTH EVERY DAY for 90 Active PARoxetine HCl 20 MG TAKE 1 TABLET BY MOUTH EVERY DAY IN THE MORNING Orally Once a day for 90 days Active hydroCHLOROthiazide 25 MG TAKE 1 TABLET BY MOUTH EVERY DAY IN THE MORNING FOR 90 DAYS Active Immunizations Vaccine Route Administration Date Status Comme nts Influenza High Dose IM Intramuscular 03/29/2025 Administer ed Social History Tobacco Use: Social History Observation [...] Problem Status W/U Status Risk Notes Problem Anxiety (69038752) Anxiety (F41.9) Active confirmed Vital Signs Blood pressure systolic 118 mm Hg 03/29/20 25 Blood pressure diastolic 70 mm Hg 025 Height 68 in 03/29/2025 Weight 181 lbs 03/29/2025 BMI 27.52 kg/m2 03/29/2025 weight is down 8 pounds [facility] e 08-07-24 Encounters Encounter Location Date Provider Diagnosis Bhavin Marin MD [address] [place] [address] [place] [phone] 03/29/2025 Bhavin Marin Anxiety F41.9 ; Hypokalemia E87.6 ; Essential hypertension I10 ; Pure hypercholesterolemia E78.00 ; Depression F32.9 and Encounter for administration of vaccine Z23 Assessments Encounter Date Diagnosis (ICD Code) Assessment Notes Treatment Notes Treatment Clinical Notes Section Notes 03/29/2025 Anxiety (ICD-10 - F41.9) 03/29/2025 Hypokalemia (ICD-10 - E87.6) 03/29/2025 Essential hypertensi on (ICD-10 - I10) stable, will continue current regiment 03/29/2025 Pure hypercholesterolemia (ICD-10 - E78.00) stable, will continue to monitor 03/29/2025 Depression (ICD-10 - F32.9) stable, will continue current regiment 03/29/2025 Encounter for administration of vaccine (ICD-10 - Z23) HD flu vaccine administered Plan Of Treatment Medication Medication Name Sig Start Date Stop Date Notes PARoxetine HCl 20 MG TAKE 1 TABLET BY MO UTH EVERY DAY IN THE MORNING Orally Once a day for 90 days hydroCHLOROthiazide 25 MG TAKE 1 TABLET BY MOUTH EVERY DAY IN THE MORNING FOR 90 DAYS Treatment Notes Assessment Notes Essential hypertension stable, will cont inue current regiment Pure hypercholesterolemia stable, will c ontinue to monitor Depression stable, will continu e current regiment Encounter for administration of vaccine HD flu vaccine administered Next Appt Details Follow Up: 6 Months, Reason: Provider Name:Bhavin martínez, 09/20/2025 10:15:00 AM, [address] [place] [address], [address], [phone], Provider Name:Bhavin martínez, 03/24/2026 08:00:00 AM, [address] [place] [address], [address], [phone], Provider Name:Bhavin martínez, 03/31/2026 09:30:00 AM, [address] [place] [address], [address], [phone], Progress Notes * Mirna DUMONT CDOB: (70 yo F)Acc No.[id number]:03/29/2025 Patient: Mann JUAN Mirna Darnell Provider: Edilberto Marin MD :1955 A ge:70 Y S ex:Female Date:03/29/2025 Address: [id number] Subjective: * Chief Complaints: * 1 . Comp visit. * HPI: D epression Screening: PHQ-9 L ittle interest or pleasure in doing things N ot at all, F eeling down, depressed, or hopeless N ot at all, T rouble falling or staying asleep, or sleeping too much N ot at all, F eeling tired or having little energy N ot at all, P oor appetite or overeating N ot at all, F eeling bad about yourself or that you are a failure, or have let yourself or your family down N ot at all, T rouble concentrating on things, such as reading the newspaper or watching television N ot at all, M oving or speaking so slowly that other people could have noticed; or the opposite, being so fidgety or restless that you have been moving around a lot more than usual N ot at all, T houghts that you would be better off or of hurting yourself in some way N ot at all, T otal Score 0 . I nterpretation and Intervention D epression Screening Findings N egative, F ollow-Up for Depression : review of PHQ-9 found negative result, no follow-up needed. C ommunication Needs: Communication Needs D oes the patient have a hearing impairment N o, D oes the patient have a vision impairment? Y es, I f yes, what is the vision impairment? G lasses, D oes the patient have a cognition impairment? N o. F all Risk: History H ave you had any falls with injury in the past year? N o, H ave you had two or more falls in the past year? N o. S XIOMARA Questions: SDOH Questions I n the past year have you been worried about losing housing? N o, I n the past year have you or any family members you live with been unable to get any of the following when it was really needed? Check all that apply: N one. S ymptom(s): patient is a 70 yo male here for review of recent labs and follow up of chronic issues h ere for yearly exam/ lost 11 pounds by watching what she eats.has never had shingles shot. advised to get it. * ROS: G eneral/Constitutional: Change in appetite d enies. C hills d enies. F ever d enies. O phthalmologic: Blurred vision d enies. D ischarge d enies. P ain d enies. E NT: Decreased hearing d enies. S ore throat d enies.?Swollen glands d enies. E ndocrine: Cold intolerance d enies. E xcessive thirst d enies. H eat intolerance d enies. W eight loss d enies. R espiratory: Cough d enies. S hortness of breath at rest d enies. S hortness of breath with exertion d enies. W heezing d enies. C ardiovascular: Chest pain at rest d enies. C hest pain with exertion?denies. I rregular heartbeat d enies. S hortness of breath d enies. ? G astrointestinal: Abdominal pain d enies. C hange in bowel habits d enies. D iarrhea d enies. N ausea d enies. R ectal bleeding d enies. V omiting d enies . G enitourinary: Blood in urine d enies. D ifficulty urinating d enies. F requent urination d enies. U rinary incontinence D enies. M usculoskeletal: Painful joints d enies. W eakness d enies. ? S kin: Dry skin d enies. I tching d enies. D enies?Mole(s), changes in moles, new moles or any lesions of concern. D enies P hotosensitivity. R elaine d enies. N eurologic: Dizziness d enies. F ainting d enies. H eadache?denies. * Medical History: c olonoscopy 07/12/10 - repeat in 10 years; negative Cologuard January 2020, [facility] [employer] , [facility], So. pb Conti at [facility], [facility], Going to get colonoscopy 2022, Advised to get shingles vaccine 2023. * Family History: F ather: 76 yrs. M other: 58 yrs, coronary artery disease. 2 brother(s) , 2 sister(s) - healthy. 1 son(s) - healthy. . father, prostate cancer mother, heart disease, Denies mental health/substance abuse family history, Denies mental health/substance abuse family history, No pertinent family medical history, Denies mental health/substance abuse family history. * Social History: T obacco Use: T obacco Use/Smoking P atient is a n onsmoker, A dditional Findings: Tobacco Non-User C urrent non-smoker, currently using no form of tobacco. D rugs/Alcohol: A lcohol Screen D id you have a drink containing alcohol in the past year? Y es, H ow often did you have a drink containing alcohol in the past year? M onthly or less (1 point), H ow many drinks did you have on a typical day when you were drinking in the past year? 1 or 2 drinks (0 point), H ow often did you have 6 or more drinks on one occasion in the past year? N ever (0 point), P oints 1 , I nterpretation N egative. M iscellaneous: C affeine: no. Children: yes. Community involvements: no. Exercise: no. Housing: owning. Living with: spouse. Marital status: . Occupation: works full- time. Pets: dog x1. * Medications: T aking Vitamin D (Cholecalciferol) 1000 UNIT Tablet 1 tablet Orally Once a day , Taking Propranolol HCl ER 60 MG Capsule Extended Release 24 Hour TAKE 1 CAPSULE BY MOUTH EVERY DAY , Taking hydroCHLOROthiazide 25 MG Tablet TAKE 1 TABLET BY MOUTH EVERY DAY IN THE MORNING FOR 90 DAYS , Taking Klor-Con 10 10 MEQ Tablet Extended Release 1 tablet with food Orally once a day , Taking PARoxetine HCl 10 MG Tablet TAKE 1 TABLET BY MOUTH EVERY DAY IN THE MORNING FOR 30 DAYS , Not-Taking/PRN PARoxetine HCl 20 MG Tablet TAKE 1 TABLET BY MOUTH EVERY DAY IN THE MORNING , Not-Taking/PRN Tylenol Extra Strength 500 MG Tablet 1 tablet as needed Orally every 6 hrs * Allergies: I FINANCE INSURANCE MANAGER Dye: hives, aspirin: rash, amoxil: hives, Bactrim: rash. Objective: * Vitals: H t: 68, Wt: 181, BMI:27.52, BP:118/70, Wt-k.1. weight is down 8 pounds since 08-07-24. * P ast Orders: L ab:Complete Blood Count Auto Diff (Order Date - 01/29/2025) (Collection Date & Time - 01/29/2025 07:00 AM) Value Reference Range White Blood Count 6.6 4.8-10.8 - X10*3/uL Red Blood Count 5.20 4.20-5.50 - X10*6/uL Hemoglobin 14.8 12.0-16.0 - g/dl Hematocrit 44.8 37.0-47.0 - % Mean Corpuscular Volume 86.2 80.0-98.0 - fL Mean Corpuscular Hemoglobin 28.5 27.0-33.0 - pg Mean Corpuscular HGB Conc 33.0 31.0-35.0 - g/ dl Red Cell Distribution Width 13.3 11.0-16.0 - % Platelet Count 239 160-400 - X10*3/uL Mean Platelet Volume 11.4 9.4-12.3 - fL Neutrophils Percent Auto 44.7 L 45-73 - % Imm Gran Pct Auto 0.3 0.0-0.4 - % Lymphocytes Percent Auto 40.3 H 20-40 - % Monocytes Percent Auto 12.3 H 2-11 - % Eosinophils Percent Auto 1.8 0-4 - % Basophils Percent Auto 0.6 0-2 - % NRBC Pct Auto 0.0 0.0-0.2 - /100WBC Neutrophils Absolute Auto 3.0 2.0-8.3 - x10* 3/uL Imm Gran Abs Auto 0.02 0.00-0.03 - X10*3/uL Lymphocytes Absolute Auto 2.7 1.2-4.9 - X10* 3/uL Monocytes Absolute Auto 0.8 0.1-1.2 - X10*3/ uL Eosinophils Absolute Auto 0.1 0.0-0.4 - X10* 3/uL Basophils Absolute Auto 0.0 0.0-0.2 - X10*3/ uL NRBC Abs Auto 0.000 0.0-0.012 - X10*3/uL L ab:Comprehensive [place]. Panel Fast (Order Date - 01/29/2025) (Collection Date & Time - 01/29/2025 07:00 AM) Value Reference Range Sodium 142 135-145 - mmol/L Bilirubin Total 0.5 0.0-1.0 - mg/dL Aspartate Amino Transferase 25 5-31 - U/L Alanine Aminotransferase 20 0-31 - U/L Total Protein 7.0 6.5-8.0 - g/dL Albumin Level 4.0 3.5-5.0 - g/dL Alkaline Phosphatase 83 39-117 - U/L Potassium 3.2 L 3.3-5.1 - mmol/L Chloride 105 96-108 - mmol/L Carbon Dioxide 30 H 22-29 - mmol/L Anion Gap 10 L 12-20 - Blood Urea Nitrogen 17 H 9-16 - mg/dL Creatinine 0.79 0.5-1.4 - mg/dL Estimated Glomerular Filt Rate > 60 - Glucose Fasting 94 60-99 - mg/dL Calcium 9.3 8.4-10.2 - mg/dL L ab:Lipid Panel (Order Date - 01/29/2025) (Collection Date & Time - 01/29/2025 07:00 AM) Value Reference Range Triglycerides 125 <150 - mg/dL Cholesterol 218 H <200 - mg/dL LDL Cholesterol Calculated 139 H <100 - mg/dL HDL Cholesterol 54 >40 - mg/dL L ab:UA ClnCatch+Micro w/rflx Cult (Order Date - 01/29/2025) (Collection Date & Time - 01/29/2025 07:00 AM) Value Reference Range Color Urine Yellow - Appearance Urine Clear - PH 6.0 5.0-9.0 - Glucose Urine UA Negative Negative - mg/dL Urine Blood Negative Negative - Specific [place] - Urine 1.015 1.005-1.025 - Urine Protein Negative Neg-Trace - mg/dL Urine Ketones Negative Negative - mg/dL Nitrite Urine Negative Negative - Leukocyte Esterase Urine Trace A Negative - RBC Urine 0-2 0-2 - /HPF WBC Urine 0-5 0-5 - /HPF Squamous Epithelial Cell Urine 0-2 0-2 - /HP F Bacteria Urine None Seen None Seen - Hyaline Casts Urine 0-2 0-2 - /LPF * Examination: G eneral Examination: GENERAL APPEARANCE: w ell developed, well nourished, in no acute distress. HEAD: n ormocephalic, atraumatic. EYES: p upils equal, round, reactive to light and accommodation, sclera non-icteric. EARS: n ormal. ORAL CAVITY: m [place] moist. THROAT: c lear. NECK/THYROID: n carmela supple, full range of motion, no cervical lymphadenopathy, no bruits. SKIN: w arm and dry, no suspicious lesions, abnormal with multple kaylin keratosis. HEART: r egular rate and rhythm, S1, S2 normal, no murmurs.? LUNGS: c lear to auscultation bilaterally. BREASTS: d one by log buncher. ABDOMEN: s oft, nontender, nondistended, bowel sounds present, normal, no organomegaly , no masses palpable. RECTAL EXAM: d one by log buncher. FEMALE GENITOURINARY: d one by log buncher. EXTREMITIES: n o clubbing, cyanosis, or edema. NEUROLOGIC: n onfocal, motor strength normal upper and lower extremities, sensory exam intact. Assessment: * Assessment: 1. A nxiety - F41.9 (Primary) 2 . H ypokalemia - E87.6 3 .?Essential hypertension - I10 4 . P ure hypercholesterolemia - E78.00 ? 5 . D epression - F32.9 6 . E ncounter for administration of vaccine - Z23 Plan: * Treatment: 2. H ypokalemia L AB: Potassium (Collection Date & Time - 03/29/2025 10:30 AM) 3. E ssential hypertension Continue hydroCHLOROthiazide Tablet, 25 MG, TAKE 1 TABLET BY MOUTH EVERY DAY IN THE MORNING FOR 90 DAYS. Notes: stable, will continue current regiment 4. P ure hypercholesterolemia Notes: stable, will continue to monitor 5. D epression Notes: stable, will continue current regiment 6. E ncounter for administration of vaccine Notes: HD flu vaccine administered * Immunizations: Influenza High Dose : 0.5 mL (Dose No:1) (Route: Intramuscular) given by Roxy Orozco , Office Staff on Left Deltoid * Procedure Codes: 3 6415 VENIPUNCT, ROUTINE*, 68611 FLU VACC PRSV FREE INC ANTIG, G0008 ADMN FLU VAC NO FEE SCHED SAME DAY * Follow Up: 6 Months * * The named appointment provid er may or may not be the originator of this progress note, and it is not deemed complete until electronically signed by the appointment provider. Sign off status: Pending * Provider: Edilberto Marin MD Date: 03/29/2025 Generated for Shyam monsalve/Rod/Edgaritting on: 03/29/2025 05:25 PM EDT History and Physical Notes * HPI (History of Present Illness) Category Sub-Category Detail Notes Category Not es Symptom(s) patient is a 70 yo male here for review of recent labs and follow up of chronic issues here for yearly exam/ lost 11 pounds by watching what she eats.has never had shingles shot. advised to get it. Depression Screening PHQ-9 Little inte rest or pleasure in doing things: Not at all Feeling down, depressed, or hopeless: No t at all Trouble falling or staying asleep, or sl eeping too much: Not at all Feeling tired or having little energy: N ot at all Poor appetite or overeating: Not at all Feeling bad about yourself o r that you are a failure, or have let yourself or your family down: Not at all Trouble concentrating on thi ngs, such as reading the newspaper or watching television: Not at all Moving or speaking so slowly that other people could have noticed; or the opposite, being so fidgety or restless that you have been moving around a lot more than usual: Not at all Thoughts that you would be b alexandra off or of hurting yourself in some way: Not at all Total Score: 0 Interpretation and Intervention Depression Alannah richardson Findings: Negative Follow-Up for Depression: : review of PH Q-9 found negative result, no follow-up needed SDOH Questions SDOH Questions In the past year have you been worried about losing housing?: No In the past year have you or any family members you live with been unable to get any of the following when it was really needed? Check all that apply:: None Fall Risk History Have you had any falls with injury i n the past year?: No Have you had two or more falls in the st year?: No Communication Needs Communication Needs Does the patient have a hearing impairment: No Does the patient have a vision impairmen t?: Yes If yes, what is the vision impairment?: Glasses Does the patient have a cognition impair ment?: No Examination Category Sub-Category Detail Notes Category Not es General Examination GENERAL APPEARANCE: well dev eloped, well nourished, in no acute distress HEAD: normocephalic, atrau matic EYES: pupils equal, round, reactive to light and accommodation, sclera non-icteric EARS: normal THROAT: clear NECK/THYROID: neck supple, full ra nge of motion, no cervical lymphadenopathy, no bruits HEART: regular rate and rhy thm, S1, S2 normal, no murmurs LUNGS: clear to auscultatio n bilaterally ABDOMEN: soft, nontender, non distended, bowel sounds present, normal, no organomegaly , no masses palpable NEUROLOGIC: nonfocal, motor stre ngth normal upper and lower extremities, sensory exam intact SKIN: warm and dry, no zaid picious lesions, abnormal with multple kaylin keratosis EXTREMITIES: no clubbing, cyanosi s, or edema BREASTS: done by log buncher RECTAL EXAM: done by log buncher FEMALE GENITOURINARY: done by log buncher ORAL CAVITY: mucosa moist
[2025-03-29 13:36] LABS: Potassium 3.6 mmol/L (3.3-5.1)
--- OUTSIDE RECORDS SUMMARY | 2025-03-29 17:25 | XMS_ITS | Encounter Summary ---
Author Organization [facility] Address [address] [place] [address] Phone Care Team Providers Care Cable Coverer Name Role Phone Bhavin Marin MD Unavailable [phone] Bhavin Marin MD Primary Care Provider Encounter Details Date Type Department Care Team (Late st Contact Info) Description 03/17/2021 Ancillary Orders Virtual Department [address] [place] [address] Lori Gabriel, SUPERVISOR [employer] [address] [place] [address] Breast screening Social History Tobacco Use Types [...] unspecified documented in this encounter Care Teams Cable Coverer Relationship Specialty Start Date End Date Bhavin Marin MD [address] [place] [address] [place] [address] PCP - General Internal Medicine 08/23/17 Bhavin Marin MD [address] [place] [address] Dr Marielos [place] [phone] Historical LMR Provider 04/30/17 2 documented as of this encounter Additional Source Comments The information contained in this document represents components of the legal health record. It is not the complete legal health record.[facility]
--- OUTSIDE RECORDS SUMMARY | 2025-03-29 17:25 | XMS_ITS | Encounter Summary ---
Author Organization [facility] Address [address] [place] [phone] Phone Care Team Providers Care Lead Java Programmer Name Role Phone Bhavin Marin MD Unavailable [phone] Bhavin Marin MD Primary Care Provider Encounter Details Date Type Department Care Team (Late st Contact Info) Description 08/23/2017 Ancillary Orders Virtual Department [address] [place] [address] Bhavin Marin MD [address] [place] [address] [facility] [place] [address] Breast screening Social History Tobacco Use Types Packs/Day Years Used Date Smoking Tobacco: Never Assessed Comments Unknown Sex and Gender Information Value Date Recorded Sex Assigned at Not on file Legal Sex Female 9:57 PM EDT Gender Identity Not on file Sexual Orientation Not on file documented as of this encounter Plan of Treatment Not on file documented as of this encounter Results * BI MAMMOGRAM SCREENING WITH TOMOSYNTHESIS WITH CAD (BILATERAL) (09/03/2017 2:57 PM EST) Anatomical Region Laterality Modality Breast Left, Breast Right, Breast Bilateral Bila teral Mammography 09/03/2017 3:34 PM EST Impressions 09/03/2017 3:36 PM EST No findings suspicious for malignancy are identified. In the absence of a worrisome palpable abnormality, annual screening mammography is recommended. BI-RADS CATEGORY: 1 - Negative. DENSITY: The breast tissue is heterogeneously dense, an appearance which lowers the sensitivity of mammography. POS CDHMAMA Narrative 09/03/2017 3:36 PM EST COMPARISON: 05/12/2013 through 08/29/2016 Bilateral 3-D tomosynthesis with 2-D reconstructions in the CC and MLO projection. Computer-aided detection system also utilized. No new mass, asymmetry, architectural distortion or suspicious calcifications have become apparent on either side. Procedure Note Jayro Irvin MD - 09/03/2017 COMPARISON: 05/12/2013 through 08/29/2016 Bilateral 3-D tomosynthesis with 2-D reconstructions in the CC and MLOprojection. Computer-aided detection system also utilized. No new mass, asymmetry, architectural distortion or suspiciouscalcifications have become apparent on either side. IMPRESSION: No findings suspicious for malignancy are identified. In the absence of aworrisome palpable abnormality, annual screening mammography isrecommended. BI-RADS CATEGORY: 1 - Negative. DENSITY: The breast tissue is heterogeneously dense, an appearance whichlowers the sensitivity of mammography. POS CDHMAMA Bhavin Marin MD IMG MG EXAMS Final R esult documented in this encounter Visit Diagnoses Diagnosis Breast screening Breast screening, unspecified Breast screening Breast screening, unspecified documented in this encounter Care Teams Lead Java Programmer Relationship Specialty Start Date End Date Bhavin Marin MD [address] [place] [address] [place] [address] PCP - General Internal Medicine 08/23/17 Bhavin Marin MD [address] [place] [address] [place] [address] Historical LMR Provider 04/30/17 1 2 documented as of this encounter Additional Source Comments The information contained in this document represents components of the legal health record. It is not the complete legal health record.[facility]
--- OUTSIDE RECORDS SUMMARY | 2025-03-29 17:25 | XMS_ITS | Clinical Summary ---
Author Organization [address] [address] Phone Care Team Providers Care Sr Vice President Name Role Phone Bhavin Marni MD Primary Care Provider Social History Tobacco Use Types Packs/Day Years Used Date Smoking Tobacco: Never Assessed Comments No Sex and Gender Information Value Date Recorded Sex Assigned at Not on file Legal Sex Female 9:57 PM EDT Gender Identity Not on file Sexual Orientation Not on file Last Filed Vital Signs Vital Sign Reading Time Taken Comments Blood Pressure 130/84 04/30/2012 3:27 AM EDT Pulse - - Temperature - - Respiratory Rate - - Oxygen Saturation - - Inhaled Oxygen Concentration - - Weight 83 kg (183 lb) 04/30/2012 3:27 AM EDT Height 172.7 cm (5' 8 ) 04/30/2012 3:27 AM EDT Body Mass Index 27.83 04/30/2012 3:27 AM EDT Plan of Treatment Not on file Medical Devices Not on file Insurance [employer] [place] [employer] [facility] [place] [facility] [place] [facility] [place] [facility] Care Teams Sr Vice President Relationship Specialty Start Date End Date Bhavin Marin MD [address] [place] [address] [place] [address] PCP - General Internal Medicine 08/23/17 Additional Source Comments The information contained in this document represents components of the legal health record. It is not the complete legal health record.[facility]
--- OUTSIDE RECORDS SUMMARY | 2025-03-29 17:25 | XMS_ITS | Patient Health Record ---
Author Organization Bhavin Marin MD Address [address] [place], [place] [id number] Care Team Providers Care Video Production Specialist Name Role Phone Bhavin Marin Primary Care Provider [phone] Allergies Allergen (clinical drug ingredient) Drug/Non Drug Allergy documented on EMR Reaction Allergy Type Onset Date Status sulfamethoxazole / trimethoprim Bactrim (uncoded) rash Allergy Active amoxil (uncoded) hives Allergy Act armand aspirin aspirin (uncoded) rash Allergy Ac tive IVP Dye (uncoded) hives Allergy Ac tive Results Component Value Reference Range Notes Complete Blood Count Auto Di ff Reviewed date:01/29/2025 04:06:06 PM Interpretation: Performing Lab:[facility], [address] [place] [phone] Notes/Report: White Blood Count 6.6 4.8-10.8 X10*3/uL [...] NRBC Abs Auto 0.000 0.0-0.012 X10*3/uL Comprehensive [place]. Panel Fa st Reviewed date:01/29/2025 04:16:08 PM Interpretation: Performing Lab:[facility], [address] [place] [phone] Notes/Report: Sodium 142 135-145 mmol/L Potassium 3.2 [...] Panel Reviewed date:01/29/2025 03:06:53 PM Interpretation: Performing Lab:[facility], [address] [place] [phone] Notes/Report: Triglycerides 125 <150 mg/dL Desirable Triglyceride: [...] t Reviewed date:01/29/2025 04:17:10 PM Interpretation: Performing Lab:[facility], [address] [place] [phone] Notes/Report: Urine, Clean Catch Color Urine Yellow Appearance Urine Clear PH 6.0 5.0-9.0 Glucose Urine UA Negative Negative mg/dL Urine Blood Negative Negative Specific [place] - Urine 1.015 1.005-1.025 Urine Protein Negative Neg-Trace mg/dL Urine Ketones Negative Negative mg/dL Nitrite Urine Negative Negative Leukocyte Esterase Urine Trace Negative RBC Urine 0-2 0-2 /HPF WBC Urine 0-5 0-5 /HPF Squamous Epithelial Cell Urine 0-2 0-2 /HPF Bacteria Urine None Seen None Seen Hyaline Casts Urine 0-2 0-2 /LPF Potassium Reviewed date:03/29/2025 01:42:19 PM Interpretation: Performing Lab:[facility], [address] [place] [phone] Notes/Report: Potassium 3.6 3.3-5.1 mmol/L XR DEXA axial skeleton Reviewed date:08/07/2024 01:27:08 PM Interpretation: Performing Lab: Notes/Report: [facility] [address] [place], [place] [address] Mammography Report Signed Patient: Mirna Shore MR#: [id number] : 1955 Acct:[id number] Age/Sex: 69 / F ADM Date: 08/07/24 Loc: BETTIEO Attending Dr: Bhavin Marin MD Ordering Physician: Bhavin Marin MD Results: Date of Service: 08/07/24 Follow Up: Procedure(s): XR DEXA axial skeleton Accession Number(s): [id number] cc: Bhavin Marin MD EXAMINATION: DXA BONE DENSITY AXIAL HISTORY: Estrogen deficiency TECHNIQUE: Turbo-Trac [place] Dual energy absorptiometry (DEXA) of the lumbar [...] of the [employer] [place] for Metabolic Bone Disease, a World Health Organization (WHO) Collaborating Center. Electronically signed by: Jordy Archibald MD 08/07/2024 10:15 AM EST Dictated By: Jordy Archibald MD Signed By: <Electronically signed by Jordy Archibald MD in OV> 08/07/24 1015 DD/ 0920 TD/TT: 08/07/24 0941 Screen Examiner: [facility] [address] [place], [place] [address] Mammography Report Signed Patient: Susanne Shore MR#: [id number] : 1955 Acct:[id number] Age/Sex: 69 / F ADM Date: 08/07/24 Loc: HO.MAMMO Attending Dr: Bhavin Marin MD Ordering Physician: Bhavin Marin MD Results: Date of Service: 08/07/24 Follow Up: Procedure(s): XR DEX A axial skeleton Accession Number(s): [id number] cc: Bhavin Marin MD EXAMINATION: DXA BON E DENSITY AXIAL HISTORY: Estrogen deficiency TECHNIQUE: Turbo-Trac [place] Dual energy absorptiometry (DEXA) of the lumbar [...] of the [employer] [place] for Metabolic Bone Disease, a World Health Organization (WHO) Collaborating Center. Electronically nathalie d by: Jordy Archibald MD 08/07/2024 10:15 AM [facility] Dictated By: Jordy Archibald MD Signed By: <Electronically signed by Jordy Archibald MD in OV> 08/07/24 1015 DD/ 0920 TD/TT: 08/07/24 0941 Screen Examiner: MM tomosynthesis screening B I Reviewed date:12/08/2024 12:46:41 PM Interpretation: Performing Lab: Notes/Report: [facility] [address] [place] [address] Mammography Report Signed Patient: Mirna Shore MR#: [id number] : 1955 Acct:[id number] Age/Sex: 69 / F ADM Date: 11/27/24 Loc: HO.MAMMO Attending Dr: Bhavin Marin MD Ordering Physician: Bhavin Marin MD Results: 1Ne gative Date of Service: 11/27/24 Follow Up: 1 Year From Orig inal Mammogram Procedure(s): MM tomosynthesis screening BI Accession Number(s): [id number] cc: Bhavin Marin MD EXAMINATION: MM SCREENING [...] 01:00 PM EDT RP Dictated By: Brittni Guaman DO Signed By: <Electronically signed by Brittni Guaman DO in OV> 12/05/24 1300 DD/ 1100 TD/TT: 11/27/24 1115 Screen Examiner: [facility] [address] [place] [address] Mammography Report Signed Patient: Susanne Shore MR#: [id number] : 1955 Acct:[id number] Age/Sex: 69 / F ADM Date: 11/27/24 Loc: HO.MAMMO Attending Dr: Bhavin Marin MD Ordering Physician: Bhavin Marin MD Results: 1Ne gative Date of Service: 11/27/24 Follow Up: 1 Year From Orig ina Mammogram Procedure(s): MM tomosynthesis screening BI Accession Number(s): [id number] cc: Bhavin Marin MD EXAMINATION: MM SCREENING [...] mammography screening. 1 year F/U This examination angie uld not preclude the clinical evaluation of a suspicious palpable abnormality. This patient's information was entered into a reminder system with a target due date for their next mammogram. Electronically nathalie d by: Brittni Guaman DO 12/05/2024 01:00 PM EDT RP Dictated By: Brittni Guaman DO Signed By: <Electronically signed by Brittni Guaman DO in OV> 12/05/24 1300 DD/ 1100 TD/TT: 11/27/24 1115 Screen Examiner: Reason For Referral No Information Medications Medication SIG (Take, Route, Frequency, Duration) [...] MORNING FOR 30 DAYS for 90 Active PARoxetine HCl 20 MG TAKE 1 TABLET BY MOUTH EVERY DAY IN THE MORNING Orally Once a day for 90 days Active hydroCHLOROthiazide 25 MG TAKE 1 TABLET BY MOUTH EVERY DAY IN THE MORNING FOR 90 DAYS Active Vitamin D (Cholecalciferol) 1000 UNIT 1 tablet Orally Once a day 11/25/2015 Active Propranolol HCl ER 60 MG TAKE 1 CAPSULE BY MOUTH EVERY DAY for 90 Active Immunizations Vaccine Route Administration Date Status Comme nts Flu Vaccine Unknown 06/19/2012 Administered Flu Vaccine Unknown 05/03/2013 Administered given at [facility] Fluarix Quadrivalent IM Intramuscular 04/18/2015 Administe red pt received the vaccine in [facility] in [place]. Flu Vaccine ID Intradermal 04/21/2016 Administered [facility] Vaccine IM Intramuscular 04/19/2017 Administered pt wa s given the vaccine at [facility]. PPSV23 (Pnemovax) IM Intramuscular 12/10/2017 Administered Prevnar 13 IM Intramuscular 12/30/2018 Administered Influenza High Dose IM Intramuscular 04/14/2019 Administer ed pt was given the vaccine at [facility] in [place]. Influenza High Dose Unknown 04/12/2020 Administered [facility] SARS-COV-2 Pfizer Unknown 09/13/2020 Administered SARS-COV-2 Pfizer Unknown 10/13/2020 Administered Influenza High Dose Unknown 05/01/2021 Administered [facility] SARS-COV-2 Pfizer Unknown 05/12/2021 Administered [facility] Fluarix Quadrivalent Unknown 04/25/2022 [facility]ered [facility] Influenza High Dose Unknown 04/12/2023 Administered SARS-COV-2 Moderna 2022 Unknown 07/28/2023 Administered Influenza High Dose Unknown 04/28/2024 Administered [facility] SARS-COV-2 Pfizer Unknown 05/09/2024 Administered [facility] Influenza High Dose IM Intramuscular 03/29/2025 Administer ed Flu Vaccine Unknown 05/04/2014 Pending Social History [...] Problem Status W/U Status Risk Notes Problem 53395501 Age-related osteoporosis without current pathological fracture (M81.0) Active confirmed Problem 000201042 Neutropenia (D70.9) Active confirmed Problem 14239026 Lymphocytosis (D72.820) Active confirmed Problem 33411652 Depression (F32.9) Active confirmed Problem Anxiety (56113538) Anxiety (F41.9) Active confirmed Problem Neutropenia (412512825) Neutropenia, unspecified (D70.9) Active confirmed Problem 126504517 Essential tremor (G25.0) Active confirmed Problem Essential hypertension (14925658) Essential (primary) hypertension (I10) Active confirmed Problem Unspecified jo ann pausal and perimenopausal disorder (N95.9) Active confirmed Problem 11580992 Essential hypert ension (I10) Active confirmed Problem 028077359 Pure hypercholesterolemia (E78.00) Active confirmed Problem 393677241 Osteopenia, unspecified location (M85.80) Active confirmed Problem Hypercalciuria (51245577) Hypercalciuria (E83.50) Active confirmed Vital Signs Blood pressure diastolic 70 mm Hg 03/29/2025 lynette ght is down 8 pounds since 08-07-24 Height 68 in 03/29/2025 weight is down 8 pounds since 08-07-24 Blood pressure systolic 118 mm Hg 03/29/2025 weig ht is down 8 pounds since 08-07-24 Weight 181 lbs 03/29/2025 weight is down 8 pounds since 08-07-24 BMI 27.52 kg/m2 03/29/2025 weight is down 8 pounds since 08-07-24 Encounters Encounter Location Date Provider Diagnosis Bhavin Marin MD [address] [place] [id number] 01/29/2025 Bhavin Marin Essential hypertensi on I10 ; Neutropenia D70.9 and Pure hypercholesterolemia E78.00 Bhavin Marin MD [address] [place] [id number] 03/29/2025 Bhavin Marin Anxiety F41.9 ; Hypokalemia E87.6 ; Essential hypertension I10 ; Pure hypercholesterolemia E78.00 ; Depression F32.9 and Encounter for administration of vaccine Z23 Bhavin Marin MD [address] [place] [id number] 06/09/2024 Bhavin Marin Acute bronchitis, unspecified organism J20.9 Bhavin Marin MD [address] [place] [address] [id number] 08/07/2024 Bhavin Marin Risk for falls Z91.8 1 ; Anxiety, generalized F41.1 and Essential hypertension I10 Bhavin Marin MD [address] [place] [id number] 09/03/2024 Bhavin Marin Viral URI with cough J06.9 Bhavin Marin MD [address] [place] [id number] 06/30/2024 Bhavin Marin MD [address] [place] [address] [id number] 01/29/2025 Bhavin Marin Assessments Encounter Date Diagnosis (ICD Code) Assessment Notes Treatment Notes Treatment Clinical Notes Section Notes 01/29/2025 Essential hypertensi on (ICD-10 - I10) 03/29/2025 Anxiety (ICD-10 - F41.9) 03/29/2025 Hypokalemia (ICD-10 - E87.6) 06/09/2024 Acute bronchitis, unspecified organism (ICD-10 - [...] choses not 01/29/2025 Neutropenia (ICD-10 - D70.9) 03/29/2025 Essential hypertensi on (ICD-10 - I10) stable, will continue current regiment 08/07/2024 Essential hypertensi on (ICD-10 - I10) stable, will continue current regiment 01/29/2025 Pure hypercholesterolemia (ICD-10 - E78.00) 03/29/2025 Pure hypercholesterolemia (ICD-10 - E78.00) stable, will continue to monitor 03/29/2025 Depression (ICD-10 - F32.9) stable, will continue current regiment 03/29/2025 Encounter for administration of vaccine (ICD-10 - Z23) HD flu vaccine administered Plan Of Treatment Pending Test Test Name Order Date Electrocardiogram (EKG) 11/24/2015 Electrocardiogram (EKG) 12/06/2016 Electrocardiogram (EKG) 12/19/2017 MAMMOGRAM DIGITAL BILATERAL SCREEN 03/31 MAMMOGRAM DIGITAL BILATERAL SCREEN 10/14 COLOGUARD 01/19/2020 COLOGUARD 01/19/2019 BONE DENSITY DEXA 01/25/2022 Future Test Test Name Order Date BONE DENSITY DEXA 08/05/2024 Next Appt Details Provider Name:Bhavin Quinones ier, 09/20/2025 10:15:00 AM, [address] [place] [address], [address], [place], [place], [phone], Provider Name:Bhavin Quinones ier, 03/24/2026 08:00:00 AM, [address] [place] [address], [address], [place], [place], [phone], Provider Name:Bhavin Quinones ier, 03/31/2026 09:30:00 AM, [address] [place] [address], Suite [facility], [place], [place], [phone], Insurance Providers Payer Name Payer Address Payer Phone Subscriber Number Group Number Insured Name Patient Relationship to Insured Coverage Start Date Coverage End Date MEDICARE NHIC [address] [place] [address] [id number] Minra Shore Self - patient is the insured [employer] [facility] [address] [place], [place] [phone] [id number] Mirna Shore Self - patient is the insured Medical (General) History Medical History History ICD Code colonoscopy 07/12/10 - repeat in 10 year s; negative Cologuard January 2020 [employer] , [facility], So. Adam villarrealo at [employer], [place] going to get colonoscopy 2022 advised to get shingles vaccine 2023
== END 2025-03-29 12:37 | disposition home or self-care (01) ==
LOC: HO.LNP 12:36
PROVIDERS: Visit Provider Internal Medicine
DX: E87.6 Hypokalemia (principal)
CPT/HCPCS: 84132